=== PATIENT | male | born 1950 | race Caucasian/White ===

== ENCOUNTER 2022-12-09 09:14 | Outpatient (OUT) | payer MEDICARE, SELFPAY ==
--- NOTE | 2022-12-09 | PCN_ITS ---
CARDIAC STRESS TEST Requesting Physician:? Jeffrey Ingram M.D. ? Procedure Date:? 12/09/2022 PERFORMING PHYSICIAN:? Lindsey Hoff M.D. INDICATION:? Chest pain. STRESS TEST TYPE:? Lexiscan myocardial perfusion imaging. Resting heart rate:? 58 Maximum heart rate:? 78 Resting blood pressure:? 160/98 Max blood pressure:? 174/86 CONCLUSIONS: 1.? Resting EKG is abnormal.? Patient is noted to have sinus bradycardia with sinus arrhythmia with a first degree AV block.? There was poor R-wave progression indicative of a possible anterior infarct, age indeterminate. 2.? No definite EKG changes consistent with ischemia post Lexiscan infusion. 3.? Please refer to separately interpreted and reported myocardial perfusion imaging. 4.? Clinical correlation recommended. [facility]
--- NOTE | 2022-12-09 09:30 | NM_ITS ---
Patient: LIS WOMACK Exam Date: 12/09/2022 : 1950 Gender:M Ordering : DR MAXI WU M.D. Admission #: [id number] Family : DR ANA JIMÉNEZ M.D. Order #: [id number] CLICK HERE TO VIEW EXAM RADIOLOGY REPORT PROCEDURE: NM SARAH PERF SPECT REST STR COMPARISON: None. INDICATIONS: CHEST PAIN, CORONARY ARTERY DISEASE TECHNIQUE: Exam Description: Stress/Rest one day protocol gated SPECT Rest Imagin.7 mCi Tc-99m Cardiolite IV on 12/12/2022 Stress Imaging 25.4 mCi Tc-99m Cardiolite IV on 12/09/2022 Exercise Protocol: 0.4 mg Lexiscan given IV Heart Rate (bpm): Rest: 58 Max: 78 PMHR: 52 Blood Pressure: Rest: 160/98 Max: 174/86 Symptoms: Rest and peak stress ECG findings were normal and the exercise portion of the study was normal per attending physician Dr. Hoff . For more details please see separate cardiac stress test report. FINDINGS: QUALITY OF STUDY: Excellent. PERFUSION DEFECT: LOCATION: Mid-anteroseptal. Mid-inferior. Apical septal. Apical inferior. SIZE: Medium (3-4 segments). SEVERITY: Moderate. TYPE: Persistent. WALL MOTION: Normal. LV SIZE: Enlarged; EDV 143 mL. TID / TCD: None; 0.9 LVEF: Normal. Calculated EF 61%. SUMMARY: Myocardial perfusion imaging study has ABNORMAL findings. CONCLUSION: 1. No acute or reversible ischemia. 2. Moderate fixed perfusion defects involving the midbody through apex anterior septal wall and midbody through apex inferior wall. 3. Mild left ventriculomegaly, 143 mL. 4. Normal wall motion and ejection fraction. Dictated by: Rex Son M.D. on 12/12/2022 at 14:43 Approved by: Rex Son M.D. on 12/12/2022 at 14:53
[2022-12-09] MEDS: REGADENOSON 0.4 MG/5 ML SYRINGE IV (10:36)
== END 2022-12-09 09:15 | disposition home or self-care (01) ==
LOC: CARD 09:16
PROVIDERS: PCP Family Medicine; Visit Provider Internal Medicine Interventional Cardiology
DX: R07.9 Chest pain, unspecified (principal)
CPT/HCPCS: 78452; 93017; A9500; J2785

== ENCOUNTER 2022-12-12 09:47 | Outpatient (OUT) | payer MEDICARE, SELFPAY ==
--- NOTE | 2022-12-12 10:51 | CA_ITS ---
Patient: LIS WOMACK Exam Date: 12/12/2022 : 1950 Gender:M Ordering : DR Jeffrey Ingram M.D. Admission #: [id number] Family : Order #: [id number] CLICK HERE TO VIEW EXAM ECHOCARDIOGRAM REPORT PROCEDURE: CA ECHO DOPPLER COMPLETE INDICATIONS: CHRONIC SYSTOLIC HEART FAILURE COMPARISON: None. DESCRIPTION: COMPLETE ECHOCARDIOGRAM Real-time transthoracic echocardiography with 2D, M-mode, spectral and color flow Doppler performed. QUALITY: Technical quality was good. LEFT VENTRICLE: Normal chamber size. Borderline left ventricular hypertrophy. Global left ventricular systolic function is normal. LV EF: Estimated left ventricular ejection fraction is 55-60%. DIASTOLIC: Diastolic function is indeterminate. ATRIAL SEPTUM: LEFT ATRIUM: Mild dilatation. RIGHT ATRIUM: Mild dilatation. RIGHT VENTRICLE: Normal chamber size. Normal right ventricular systolic function. TRICUSPID VALVE: Normal mobility and thickness. No stenosis with mild regurgitation. Mild pulmonary hypertension. RVSP 35 mmHg MITRAL VALVE: Normal mobility and thickness. No evidence of mitral valve stenosis. There is no mitral annular calcification. Trivial mitral regurgitation. AORTIC VALVE: Normal trileaflet appearance. Normal leaflet mobility. No evidence of aortic valve stenosis. No aortic regurgitation. AORTIC ROOT: Normal diameter and appearance. PULMONIC VALVE: Normal thickness and mobility. No stenosis. Trivial regurgitation. PERICARDIUM: No evidence of pericardial effusion. IVC: Collapses with inspirations. Normal size. PLEURA: CONCLUSION: 1. Left ventricular systolic function is normal. LVEF is 55 to 60%. 2. Normal right ventricular size and systolic function. 3. Diastolic function is indeterminate. 4. Mild biatrial dilatation. 5. No significant valvular dysfunction. 6. Mildly elevated right-sided pressures. Adult Echocardiography Procedure Report Left Ventricle LVEDD (3.7 - 5.6 cm): 4.65 cm LVESD (2.2 - 4.0 cm): 3.23 cm LVIVS thickness (0.6 - 1.2 cm): 1.06 cm LVPW thickness (0.5 - 1.0 cm): 1.11 cm e': 0.11 m/s E - e': 7.66 LVOT Max Gradient: 3.27 mm[Hg] LVOT Area (cm2): 0.90 m/s Peak Velocity (LVOT): 0.90 m/s Mean Velocity (LVOT): 0.62 m/s LVOT Diameter 2.25 cm Left Ventricular Ejection Fraction: 55-60 % Left Atrium LA Volume Index (2D A2C): 45.87 ml/m2 Left Atrium Systolic Dimension: 4.62 cm Mitral Valve MV E to A Ratio: 0.93 Mitral Valve A-Wave Peak Velocity: 0.87 m/s Mitral Valve E-Wave Peak Velocity: 0.81 m/s Right Ventricle RV Internal Diastolic Dimension: 3.99 cm Aorta AO Root Diam: 3.29 cm Ascending Ao Diam: 3.23 cm Aortic Valve AoV Area (Peak Jose): 3.23 cm2, 3.23 cm2 AoV Area (VTI): 2.80 cm2, 2.80 cm2 Peak Velocity(Antegrade Flow): 1.11 m/s Peak Gradient(Antegrade Flow): 4.96 mm[Hg] Mean Velocity(Antegrade Flow): 0.83 m/s Mean Gradient(Antegrade Flow): 3.07 mm[Hg] Velocity Time Integral: 35.03 cm Tricuspid Valve Peak Velocity (Regurgitant Flow): 2.70 m/s, 2.29 m/s, 2.83 m/s Pulmonic Valve Mean Gradient: 3.44 mm[Hg] Mean Velocity: 0.87 m/s Peak Velocity: 1.28 m/s, 1.11 m/s Peak Gradient: 6.58 mm[Hg], 4.97 mm[Hg] Right Atrium Right Atrium Systolic Pressure: 59.67 ml, 59.67 ml Dictated by: Aiden Ramires M.D. on 12/12/2022 at 19:46 Approved by: Aiden Ramires M.D. on 12/12/2022 at 19:51
== END 2022-12-12 09:48 | disposition home or self-care (01) ==
LOC: NM 09:47
PROVIDERS: PCP Family Medicine; Visit Provider Internal Medicine Interventional Cardiology
DX: R07.9 Chest pain, unspecified (principal)
CPT/HCPCS: 93306

== ENCOUNTER 2024-10-28 09:51 | Outpatient (OUT) | payer MEDICARE, SELFPAY ==
--- OUTSIDE RECORDS SUMMARY | 2024-10-25 12:20 | XMS_ITS | Encounter Summary ---
Author Organization [facility] Address [address] [place] [address] Care Team Providers Care Ict Educator Name Role Phone Emily Kohli MD Unavailable Emily Kohli MD Primary Care Provider [phone] Reason for Referral * Medications - Authorized Specialty Diagnoses / Procedures Referred By Isrrael t Referred To Contact Diagnoses Chronic low back pain with bilateral sciatica, unspecified back pain laterality Emily Kohli MD [address] [place] [address] Phone: tel: fax: Referral ID Status Reason Start Date Expiration Date V isits Requested Visits Authorized [id number] Authorized 07/26/2024 10/25/2025 1 1 Reason for Visit * Reason Comments Back Pain Encounter Details Date Type Department Care Team (Latest Contact Info) Description 10/25/2024 12:20 PM EDT Office Visit [facility] [address] [place] [phone] Emily Kohli MD [address] [place], [place] [phone] Routine general medical examination at a health care facility (Primary Dx); Coronary artery disease involving upper skagit coronary artery of upper skagit heart without angina pectoris ; Essential hypertension ; Obstructive sleep apnea syndrome; Type 2 diabetes mellitus with other circulatory complications (HCC); 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); Morbid (severe) obesity due to excess calories (E66.01); Benign prostatic hyperplasia with lower urinary tract symptoms, symptom details unspecified; Chronic low back pain with bilateral sciatica, unspecified back pain laterality; BMI 50.0-59.9, adult ([facility]); Prostate cancer screening; Encounter for screening for malignant neoplasm of colon; Chronic diastolic (congestive) heart failure (HCC) Social History Tobacco Use Types Packs/Day Years Used Date Smoking Tobacco: Never Smokeless Tobacco: Never Alcohol Use Standard Drinks/Week Comments Never 0 (1 standard drink = 0.6 oz pure alcohol) Caffeine intake: none Ice Tea, pop occasionally PHQ-2 Answer Date Recorded Patient Health Questionnaire-2 Score 0 10/25/2024 Sex and Gender Information Value Date Recorded Sex Assigned at Not on file Legal Sex Male 7:25 PM EDT Gender Identity Not on file Sexual Orientation Not on file documented as of this encounter Last Filed Vital Signs Vital Sign Reading Time Taken Comments Blood Pressure 126/82 10/25/2024 12:30 PM EDT Pulse 63 10/25/2024 12:30 PM EDT Temperature - - Respiratory Rate 18 10/25/2024 12:30 PM EDT Oxygen Saturation 97% 10/25/2024 12:30 PM EDT Inhaled Oxygen Concentration - - Weight 144 kg (317 lb 3.2 oz) 10/25/2024 12:30 P M EDT Height 177.8 cm (5' 10 ) 10/25/2024 12:30 PM EDT Body Mass Index 45.51 10/25/2024 12:30 PM EDT documented in this encounter Functional Status * Over the past 2 weeks, how often have you been bothered by any of the following problems? Question Answer Date of Assessment Author Little interest or pleasure in doing things Not at all 10/25/2024 12:00 PM EDT Deisi Ramos MA Feeling down, depressed, or hopeless Not at all 10/25/2024 12:00 PM EDT Deisi Ramos MA Patient Health Questionnaire-2 Score 0 10/25/2024 12:00 PM EDT Sarbjit Ramos MA documented as of this encounter Progress Notes * Emily Kohli MD - 10/25/2024 12:20 PM EDTAssociated Problem(s): Coronary artery disease stable managed by cardiology * Emily Kohli MD - 10/25/2024 12:20 PM EDTAssociated Problem(s): Essential hypertension stable * Emily Kohli MD - 10/25/2024 12:20 PM EDTAssociated Problem(s): Obstructive sleep apnea syndrome Uses mask cpap * Emily Kohli MD - 10/25/2024 12:20 PM EDTAssociated Problem(s): Type 2 diabetes mellitus with other circulatory complications (HCC) Orders: Microalbumin / creatinine urine ratio; Future CBC and differential; Future Comprehensive metabolic panel; Future Lipid panel; Future managed by endo * Emily Kohli MD - 10/25/2024 12:20 PM EDTAssociated Problem(s): 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 Subjective Patient ID: Gunnar Zarate is a 74 y.o. male who presents for Back Pain. HPI History of Present Illness Over the past 2 weeks, how often have you been bothered by any of the following problems? Little interest or pleasure in doing things: Not at all Feeling down, depressed, or hopeless: Not at all Patient Health Questionnaire-2 Score: 0 Emerson Fall Risk History of Falling, Immediate or Within 3 Months: No Secondary Diagnosis: No Ambulatory Aid: Walks without aid/bedrest/nurse assist Intravenous Therapy/Heparin Lock: No Gait/Transferring: Normal/bedrest/immobile Mental Status: Oriented to own ability Emerson Fall Risk Score: 0 Health Risk Assessment Form Do you need help eating, bathing, using the toilet, dressing, or getting around your home?: No Can you prepare your own meals?: Yes Can you do your own housework without help?: Yes Can you shop for groceries or clothes without help?: Yes Do you exercise for about 20 minutes 3 or more days a week?: Yes How confident are you that you can control and manage most of your health problems?: Very confident Can you mange your money, credit cards and accounts, pay bills and taxes?: Yes Vision Screening: Yes, no gross abnormalities Hearing Screening: Yes, no gross abnormalities Cognitive Screening Self Assessment: No overt cognitive deficiency is apparent by direct observation Three Word Registration: Banana, Bee, Chair Clock Drawing: Normal Clock - 2 Three Word Recall: 2/3 words correct - 2 Total Score (0-5 Points): 4 Pain Assessment Pain Score: 10 - Worst possible pain The patient presents for evaluation of back pain, heartburn, sleep apnea, and health maintenance. He experienced severe lower back pain while gardening approximately 1.5 weeks ago, which has since improved. However, he continues to struggle with mobility after sitting for extended periods. He also reports limited neck mobility. He is seeking non-pharmacological relief for his symptoms but is open to muscle relaxants. He maintains an active lifestyle, including walking and yard work. He has been managing his condition through morning stretches and exercises, as advised by his chiropractor. [id number] Tylenol provides some relief. He has tried physical therapy, but it exacerbated his tailbone pain. He has a history of a fall about a year ago, which resulted in persistent tailbone pain. Despite undergoing x-rays and chiropractic treatment, no significant findings were reported. He occasionally experiences chest pain, which he attributes to heartburn. He is currently on medication for this condition and finds Maureen-Cedar [place] tablets beneficial. He had a spicy meal last night and experienced heartburn. He uses a CPAP machine for sleep apnea and reports no issues with it. His blood sugar levels are well-controlled, with a recent reading of 7.2. He has undergone cataractsurgery on his left eye and has been advised to have his right eye checked due to difficulties withnight driving. He has had three colonoscopies, the most recent one in 2014, all of which were normal. PAST SURGICAL HISTORY: Cataract surgery on the left eye Objective BP 126/82 (BP Location: Left arm, Patient Position: Sitting, BP Cuff Size: Large adult) Pulse 63 Resp 18 Ht 5' 10 Wt 317 lb 3.2 oz SpO2 97% BMI 45.51 kg/m² Physical Exam Constitutional: Appearance: He is normal weight. HENT: Head: Normocephalic and atraumatic. Nose: Nose normal. No congestion. Mouth/Throat: Mouth: Mucous membranes are moist. Eyes: Extraocular Movements: Extraocular movements intact. Pupils: Pupils are equal, round, and reactive to light. Cardiovascular: Rate and Rhythm: Normal rate and regular rhythm. Pulmonary: Effort: Pulmonary effort is normal. No respiratory distress. Breath sounds: Normal breath sounds. No wheezing. Musculoskeletal: General: No swelling or deformity. Cervical back: Normal range of motion and neck supple. Right lower leg: No edema. Left lower leg: No edema. Comments: Bilateral tenderness at SI joints. 5/5 leg strength Skin: General: Skin is warm and dry. Findings: No rash. Neurological: General: No focal deficit present. Mental Status: He is alert and oriented to person, place, and time. Cranial Nerves: No cranial nerve deficit. Gait: Gait normal. Psychiatric: Mood and Affect: Mood normal. Behavior: Behavior normal. Physical Exam Respiratory: Clear to auscultation, no wheezing, rales or rhonchi Cardiovascular: Regular rate and rhythm, no murmurs, rubs, or gallops Extremities: No swelling in the legs Other: Height is 59.5 inches Lab Results Component Value Date HGBA1C 7.7 09/17/2024 Visit Vitals BP 126/82 (BP Location: Left arm, Patient Position: Sitting, BP Cuff Size: Large adult) Pulse 63 Resp 18 Ht 5' 10 Wt 317 lb 3.2 oz SpO2 97% BMI 45.51 kg/m² Smoking Status Never BSA 2.67 m² Assessment & Plan Routine general medical examination at a health care facility As of your medicare wellness visit , the medical team reviewed your chart and chronic problems and treatment. Your information regarding healthy diet, activity, immunizations, depression screening, advance directives , activities of daily living medications, cognitive screening and risk factors fordisease were reviewed or addressed Coronary artery disease involving upper sk[place]it coronary artery of upper skagit heart without angina pectoris stable managed by cardiology Essential hypertension stable Obstructive sleep apnea syndrome Uses mask cpap Type 2 diabetes mellitus with other circulatory complications (HCC) Orders: Microalbumin / creatinine urine ratio; Future CBC and differential; Future Comprehensive metabolic panel; Future Lipid panel; Future managed by endo USP (current) use of insulin (Z79.4) Morbid (severe) obesity due to excess calories (E66.01) Benign prostatic hyperplasia with lower urinary tract symptoms, symptom details unspecified stable Chronic low back pain with bilateral sciatica, unspecified back pain laterality BMI 50.0-59.9, adult ([facility]) Prostate cancer screening Orders: PSA; Future Encounter for screening for malignant neoplasm of colon Chronic diastolic (congestive) heart failure (HCC) Stable managed by cardiology Assessment & Plan 1. Back pain. - The pain is localized to the sacroiliac joint rather than the tailbone. - A prescription for a muscle relaxant has been provided. He is advised to continue taking Tylenol as needed and to perform daily stretches. - Additional back exercises have been recommended for home practice during midday to strengthen theback. - If there is no improvement in his back pain, he should inform us so that further treatment options can be considered. 2. Heartburn. - He experiences occasional heartburn, sometimes related to spicy food intake. - He currently takes Maureen-[place] tablets, which provide relief. - He is advised to continue using these as needed. - No new medications or changes to the current treatment plan are necessary. 3. Sleep apnea. - He uses a CPAP machine and reports no issues with it. - No changes to the current treatment plan are necessary. - He is compliant with using his CPAP machine. - No additional interventions are required at this time. 4. Health maintenance. - He is due for blood work, including cholesterol levels. - A marker check for prostate cancer screening will be conducted today. - He is also due for a colonoscopy, as his last one was in 2014. - He has been informed about the importance of early detection and treatment of colon cancer. documented in this encounter Plan of Treatment Upcoming Encounters Date Type Department Care Team (Late st Contact Info) Description 11/11/2024 10:30 AM EDT Procedure Visit [facility] [address] [place] [phone] Rex Angel [facility] [address] [place], [place] [phone] 11/17/2024 10:30 AM EDT Office Visit [facility] [address] [place] [phone] 12/21/2024 11:10 AM EDT Office Visit [facility] [address] [place] [phone] Ron Washburn MD [address], [address] [place] [address] documented as of this encounter Procedures Procedure Name Priority Date/Time Associated Diagnosis Comments MICROALBUMIN / CREATININE URINE RATIO Routine 10/25/2024 1:14 PM EDT Type 2 diabetes mellitus with other circulatory complications (HCC) CBC (INCLUDES DIFF/PLT) Routine 10/25/2024 1:14 PM EDT Type 2 diabetes mellitus with other circulatory complications (HCC) PSA, TOTAL Routine 10/25/2024 1:14 PM EDT Prostate cancer screening LIPID PANEL Routine 10/25/2024 1:14 PM EDT Type 2 diabetes mellitus with other circulatory complications (HCC) COMPREHENSIVE METABOLIC PANEL Routine 10/25/2024 1:14 PM EDT Type 2 diabetes mellitus with other circulatory complications (HCC) documented in this encounter Results * (ABNORMAL) Lipid panel (10/25/2024 1:14 PM EDT) CHOLESTEROL, TOTAL 129 <200 mg/dL [facility] HDL CHOLESTEROL 40 > OR = 40 mg/dL [facility] TRIGLYCERIDES 190(H) <150 mg/dL [facility] LDL CHOLESTEROL 63 mg/dL (calc) [facility] Comment: Reference range: <100 Desirable range <100 mg/dL for primary prevention; <70 mg/dL for patients with CHD or diabetic patients with > or = 2 CHD risk factors. LDL-C is now calculated using the Michoacano-Shayy calculation, which is a validated novel method providing better accuracy than the Friedewald equation in the estimation of LDL-C. Michoacano SPAIN et al. JAZ. 2013;310(19): 2032-0567 (http://education.Fi.tt.[employer]/faq/LJK142) CHOL/HDLC RATIO 3.2 <5.0 (calc) [facility] NON HDL CHOLESTEROL 89 <130 mg/dL (calc) [facility] Comment: For patients with diabetes plus 1 major ASCVD risk factor, treating to a non-HDL-C goal of <100 mg/dL (LDL-C of <70 mg/dL) is considered a therapeutic option. Blood Venous blood specimen / Unknown 10/25/2024 1:14 PM EDT 10/25/2024 1:15 PM EDT Narrative Resulting Agency Comment Performing Organization Information Site ID: QPT Name: [facility] Address: [address] [place] [address], [address] [place] [id number] Director: Kory Grubbs MD Emily Kohli MD LAB BLOOD ORDERABLES Final Resul t [facility] * (ABNORMAL) Comprehensive metabolic panel (10/25/2024 1:14 PM EDT) Glucose 218(H) 65 - 99 mg/dL [facility] Comment: Fasting reference interval For someone without known diabetes, a glucose value >125 mg/dL indicates that they may have diabetes and this should be confirmed with a follow-up test. BUN 17 7 - 25 mg/dL [facility] Creatinine 0.95 0.70 - 1.28 mg/dL [facility] EGFR 85 > OR = 60 mL/min/1. 73m2 [facility] BUN/CREATININE RATIO SEE NOTE: 6 - 22 (calc) [facility] Comment: Not Reported: BUN and Creatinine are within reference range. Sodium 141 135 - 146 mmol/L [facility] Potassium, Bld 3.7 3.5 - 5.3 mmol/L [facility] Chloride 105 98 - 110 mmol/L [facility] Carbon Dioxide 28 20 - 32 mmol/L [facility] Calcium 8.4(L) 8.6 - 10.3 mg/dL [facility] PROTEIN, TOTAL 6.8 6.1 - 8.1 g/dL [facility] ALBUMIN 3.9 3.6 - 5.1 g/dL [facility] GLOBULIN 2.9 1.9 - 3.7 g/dL (calc) [facility] ALBUMIN/GLOBULIN RATIO 1.3 1.0 - 2.5 (calc) [facility] BILIRUBIN, TOTAL 0.4 0.2 - 1.2 mg/dL [facility] ALKALINE PHOSPHATASE 79 35 - 144 U/L [facility] AST 12 10 - 35 U/L [facility] ALT 9 9 - 46 U/L [facility] Blood Venous blood specimen / Unknown 10/25/2024 1:14 PM EDT 10/25/2024 1:15 PM EDT Narrative Resulting Agency Comment Performing Organization Information Site ID: QPT Name: [facility] Address: [address] , [address] [place] [address] Director: Kory Grubbs MD us Emily Kohli MD LAB BLOOD ORDERABLES Final Resul t [facility] * (ABNORMAL) CBC and differential (10/25/2024 1:14 PM EDT) Pathologist [facility] WHITE BLOOD CELL COUNT 8.6 3.8 - 10.8 Thousand/u L [facility] RED BLOOD CELL COUNT 4.76 4.20 - 5.80 Million/uL [facility] HEMOGLOBIN 13.0(L) 13.2 - 17.1 g/dL [facility] HEMATOCRIT 42.3 38.5 - 50.0 % [facility] MCV 88.9 80.0 - 100.0 fL [facility] MCH 27.3 27.0 - 33.0 pg [facility] MCHC 30.7(L) 32.0 - 36.0 g/dL [facility] Comment: For adults, a slight decrease in the calculated MCHC value (in the range of 30 to 32 g/dL) is most likely not clinically significant; however, it should be interpreted with caution in correlation with other red cell parameters and the patient's clinical condition. RDW 15.9(H) 11.0 - 15.0 % [facility] PLATELET COUNT 193 140 - 400 Thousand/u L [facility] MPV 10.2 7.5 - 12.5 fL [facility] ABSOLUTE NEUTROPHILS 6,011 1,500 - 7,800 cells/uL [facility] ABSOLUTE LYMPHOCYTES 1,548 850 - 3,900 cells/uL [facility] ABSOLUTE MONOCYTES 740 200 - 950 cells/uL [facility] ABSOLUTE EOSINOPHILS 249 15 - 500 cells/uL [facility] ABSOLUTE BASOPHILS 52 0 - 200 cells/uL [facility] NEUTROPHILS 69.9 % [facility] LYMPHOCYTES 18.0 % [facility] MONOCYTES 8.6 % [facility] EOSINOPHILS 2.9 % [facility] BASOPHILS 0.6 % [facility] Blood Venous blood specimen / Unknown 10/25/2024 1:14 PM EDT 10/25/2024 1:15 PM EDT Narrative Resulting Agency Comment Performing Organization Information Site ID: QPT Name: [facility] Address: [address] [place] [address], [address] [place] [phone] Director: Kory Grubbs MD Emily Kohli MD LAB BLOOD ORDERABLES Final Resul t Performing Organization Address [facility] de Phone Number [facility] * PSA (10/25/2024 1:14 PM EDT) PSA, TOTAL 1.90 < OR = 4.00 ng/mL [facility] Comment: The total PSA value from this assay system is standardized against the WHO standard. The test result will be approximately 20% lower when compared to the equimolar-standardized total PSA (Lynda Rougon). Comparison of serial PSA results should be interpreted with this fact in mind. This test was performed using the Siemens chemiluminescent method. Values obtained from different assay methods cannot be used interchangeably. PSA levels, regardless of value, should not be interpreted as absolute evidence of the presence or absence of disease. Blood Venous blood specimen / Unknown 10/25/2024 1:14 PM EDT 10/25/2024 1:15 PM EDT Narrative Resulting Agency Comment Performing Organization Information Site ID: QPT Name: [facility] Address: [address] [place] [address], [address] [place] [phone] Director: Kory Grubbs MD Emily Kohli MD LAB BLOOD ORDERABLES Final Resul t Performing Organization Address [facility] de Phone Number [facility] * Microalbumin / creatinine urine ratio (10/25/2024 1:14 PM EDT) CREATININE, RANDOM URINE 44 20 - 320 mg/dL [facility] ALBUMIN, URINE <0.2 See Note: mg/dL [facility] Comment: Reference Range: Reference Range Not established ALBUMIN/CREATININE RATIO, RANDOM URINE NOTE <30 mg/g creat [facility] Comment: NOTE: The urine albumin value is less than 0.2 mg/dL therefore we are unable to calculate excretion and/or creatinine ratio. The ADA defines abnormalities in albumin excretion as follows: Albuminuria Category Result (mg/g creatinine) Normal to Mildly increased <30 Moderately increased 30-299 Severely increased > OR = 300 The ADA recommends that at least two of three specimens collected within a 3-6 month period be abnormal before considering a patient to be within a diagnostic category. Urine Urine specimen obtained by clean catch procedure / Unknown 10/25/2024 1:14 PM EDT 10/25/2024 1:15 PM EDT Narrative Resulting Agency Comment Performing Organization Information Site ID: QPT Name: [facility] Address: [address] [place] [address], [address] [place] [phone] Director: Kory Grubbs MD us Emily Kohli MD LAB URINE ORDERABLES Final Resul t [facility] documented in this encounter Visit Diagnoses Diagnosis Routine general medical examination at a health care facility- Primary Coronary artery disease involving upper [place] coronary artery of upper sk[place] heart without angina pectoris Essential hypertension Unspecified essential hypertension Obstructive sleep apnea syndrome Obstructive sleep apnea (adult) (pediatric) Type 2 diabetes mellitus with other circulatory complications (HCC) USP (current) use of insulin (Z79.4) Morbid (severe) obesity due to excess calories (E66.01) Benign prostatic hyperplasia with lower urinary tract symptoms, symptom details unspecified Chronic low back pain with bilateral sciatica, unspecified back pain laterality BMI 50.0-59.9, adult ([facility]) Prostate cancer screening Special screening for malignant neoplasm of prostate Encounter for screening for malignant neoplasm of colon Chronic diastolic (congestive) heart failure (HCC) documented in this encounter Additional Health Concerns Assessment Noted Time PHQ-9 Depression Total Score: 3 07/15/19 24 11:00 AM EDT documented as of this encounter Care Teams Ict Educator Relationship Specialty Start Date End Date Emily Kohli MD [address] [place] [address] PCP - Gab RODRÍGUEZ 09/26/22 Emily Kohli MD [address] [place] [address] PCP - General Family Medicine 10/14/22 documented as of this encounter
--- OUTSIDE RECORDS SUMMARY | 2024-10-28 09:53 | XMS_ITS | Encounter Summary ---
Author Organization [facility] Address [address] [place] [address] Care Team Providers Care Speech Clinician Name Role Phone Emily Kohli MD Unavailable Emily Kohli MD Primary Care Provider [phone] Encounter Details Date Type Department Care Team (Late st Contact Info) Description 10/26/2024 Orders Only [facility] [address] [place] [phone] Emily Kohli MD [address], [place] [phone] Social History Tobacco Use Types Packs/Day Years [...] on file documented as of this encounter Plan of Treatment Upcoming Encounters Date Type Department Care Team (Late st Contact Info) Description 11/11/2024 10:30 AM EDT Procedure Visit [facility] [address] [place] [phone] Rex Angel DPM [address] [place], [place] [phone] 11/17/2024 10:30 AM EDT Office Visit [facility] [address] [place] [phone] 12/21/2024 11:10 AM EDT Office Visit [facility] [address] [place] [phone] Ron Washburn MD [address] [place] [address] documented as of this encounter Procedures Procedure Name Priority Date/Time Associated Diagnosis Comments DIABETIC RETINOPATHY SCREENING - OU - BOTH EYES Routine 05/31/2024 2:38 PM EST documented in this encounter Results * Diabetic Retinopathy Screening - OU - Both Eyes (05/31/2024 2:38 PM EST) Anatomical Region Laterality Modality Head Other Emily Kohli MD OPHTH PHOTOGRAPHY Final Result documented in this encounter Visit Diagnoses Not on filedocumented in this encounter Additional Health Concerns Assessment Noted Time PHQ-9 Depression Total Score: 3 07/15/19 24 11:00 AM EDT documented as of this encounter Care Teams Speech Clinician Relationship Specialty Start Date End Date Emily Kohli MD [address] [place] [address] PCP - Gab RODRÍGUEZ 09/26/22 Emily Kohli MD [address] [place] [address] PCP - General Family Medicine 10/14/22 documented as of this encounter
--- OUTSIDE RECORDS SUMMARY | 2024-10-28 09:53 | XMS_ITS | Encounter Summary ---
Author Organization [facility] Address [address] [place] [address] Care Team Providers Care Account Development Executive Name Role Phone Emily Kohli MD Unavailable Emily Kohli MD Primary Care Provider [phone] Encounter Details Date Type Department Care Team (Latest Contact Info) Description 10/25/2024 Travel Social History Tobacco Use Types Packs/Day Years [...] on file documented as of this encounter Functional Status * Over the [...] Ramos MA documented as of this encounter Plan of Treatment Upcoming Encounters Date Type Department Care Team (Late st Contact Info) Description 11/11/2024 10:30 AM EDT Procedure Visit [facility] [address] [place] [address] Rex Angel, DPM [address] [place] [address] 11/17/2024 10:30 AM EDT Office Visit [facility] [address] [place] [id number] 12/21/2024 11:10 AM EDT Office Visit [facility] [address] [place] [address] Ron Washburn MD [address] [place] [address] documented as of this encounter Visit Diagnoses Not on filedocumented in this encounter Additional Health Concerns Assessment Noted Time PHQ-9 Depression Total Score: 3 07/15/19 24 11:00 AM EDT documented as of this encounter Care Teams Account Development Executive Relationship Specialty Start Date End Date Emily Kohli MD [address] [place] [address] PCP - Gab RODRÍGUEZ 09/26/22 Emily Kohli MD [address] [place] [address] PCP - General Family Medicine 10/14/22 documented as of this encounter
--- OUTSIDE RECORDS SUMMARY | 2024-10-28 09:53 | XMS_ITS | Clinical Summary ---
Author Organization [facility] Address [address] [address] Care Team Providers Care University Controller Name Role Phone Emily Kohli MD Primary Care Provider [phone] Allergies Active Allergy Reactions Criticality Noted Date Comments Latex Other 04/15/2014 Shellfish Derived Other 04/15/2014 Medications aspirin 81 mg chewable tablet Chew 81 mg in the morning. Active carvedilol (Coreg) 12.5 mg tablet Take 25 mg by mouth with breakfast and with evening meal. 03/04/20 22 Active cholecalciferol , vitamin D3, 50 mcg (2,000 unit) capsule Take 2,000 Units by mouth in the morning. 04/20/20 18 Active fluticasone (Flonase) 50 mcg/actuation nasal spray 01/21/20 17 Active hydroCHLOROthia zide (HYDRODiuril) 25 mg tablet Take 25 mg by mouth in the morning. Active insulin lispro protamin-lispro (HumaLOG Mix 75-25) 100 unit/mL (75-25) injection Inject by sub-q route as directed for 29 days. Active lisinopril 40 mg tablet Take 40 mg by mouth in the morning. 02/12/20 Active metFORMIN (Glucophage) 1,000 mg tablet Take 1 tablet twice a day by oral route for 90 days. 10/17/19 19 Active simvastatin (Zocor) 40 mg tablet Take 40 mg by mouth at bedtime. 02/12/20 22 Active tamsulosin (Flomax) 0.4 mg 24 hr capsule 01/31/20 22 Active HumaLOG KwikPen Insulin 100 unit/mL injection pen Inject under the skin. Active omeprazole (PriLOSEC) [address] capsule Take 40 mg by mouth. 10/15/19 23 Active dapagliflozin propanediol (Farxiga) 10 mg Take by mouth. Active semaglutide (Ozempic) 0.25 mg or 0.5 mg(2 mg/1.5 mL) pen injector Inject 0.5 mg under the skin 1 (one) time per week. 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 Victoza. Metformin.//aspirin. Statin. Danny. 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 05/21/2023 Morbid (severe) obesity due to excess calories 0 05/21/2023 Asymmetrical sensorineural hearing loss 10/14/19 23 Coronary artery disease 10/13/2022 Overview (09/23/2023): Sees cardiology at [facility] Dependence on other enabling machines and device s 10/13/2022 Difficulty walking 10/13/2022 Lumbar and sacral osteoarthritis 10/13/2022 Other chronic pain 10/13/2022 Pain in right knee 10/13/2022 Unspecified hearing loss, unspecified ear 2022 Overview (09/23/2023): HEARING AID Benign prostatic hyperplasia with lower urinary tract symptoms 11/09/2019 Overview (09/23/2023): 11/09/19: Progressive lower urinary tract symptoms. Multifactorial. Plan to start with tamsulosin. If no improvement will add anticholinergic 12/08/19: 30% improvement with Flomax. Will increase to 0.8 mg nightly. 06/27/20: Did not take the higher dose. Having lightheadedness currently. Recommendation was him to stay on the 0.4 mg tamsulosin. Add oxybutynin extended release 10 mg 08/30/20: PVR 390. He will discontinue the oxybutynin. Discussed trying finasteride or proceeding with cysto. He wants to hold off for now but will call if he changes his mind. 01/02/21: Persistent elevated postvoid residual 239 cc. Discussed options. We could add finasteride but this will take 6-12 months to gradually shrink his prostate. Alternatively we can perform cysto to evaluate if he would be a candidate for bladder outlet reduction. I told him this would get him off of the tamsulosin. His frequency may persist as this is likely due to his overactive bladder however we need to maximize his opening of his outlet to allow him to empty completely prior to restarting any medication to relax the bladder further as this caused him to have markedly increased residual urines. 01/30/21: Cysto with BPH. Plan for TURP 02/25/23: luts - plan retrial tamsulosin and oxybutynin. Recheck pvr in a month Last Assessment & Plan: We will see him back in a few months or sooner if he changes his mind 11/09/19: Progressive lower urinary tract symptoms. Multifactorial. Plan to start with tamsulosin. If no improvement will add anticholinergic 12/08/19: 30% improvement with Flomax. Will increase to 0.8 mg nightly. 06/27/20: Did not take the higher dose. Having lightheadedness currently. Recommendation was him to stay on the 0.4 mg tamsulosin. Add oxybutynin extended release 10 mg 08/30/20: PVR 390. He will discontinue the oxybutynin. Discussed trying finasteride or proceeding with cysto. He wants to hold off for now but will call if he changes his mind. 01/02/21: Persistent elevated postvoid residual 239 cc. Discussed options. We could add finasteride but this will take 6-12 months to gradually shrink his prostate. Alternatively we can perform cysto to evaluate if he would be a candidate for bladder outlet reduction. I told him this would get him off of the tamsulosin. His frequency may persist as this is likely due to his overactive bladder however we need to maximize his opening of his outlet to allow him to empty completely prior to restarting any medication to relax the bladder further as this caused him to have markedly increased residual urines. 01/30/21: Cysto with BPH. Plan for TURP 02/25/23: luts - plan retrial tamsulosin and oxybutynin. Recheck pvr in a month Last Assessment & Plan: We will see him back in a few months or sooner if he changes his mind Hematuria, microscopic 11/09/2019 Overview (09/23/2023): 11/09/19: Microhematuria on one specimen at primary care. He was unable to void in clinic today. Plan recheck when returns and workup further if persistent 12/08/19: Unable to void again. I provided him with the order and cup, he will drop off at the lab soon. Denies gross hematuria 12/09/19: UA with 1 RBC Hypovitaminosis D 04/20/2018 Adequate nutrition 03/05/2018 Overview (09/23/2023): DIET : TEA, LOW CHOLESTEROL, 1800 ADA , WT LOSS Gastroesophageal reflux disease without esophagi tis 03/05/2018 Overview (09/23/2023): Ranitidine Rantidine Preventative health care 03/05/2018 Overview (09/23/2023): Last Assessment & Plan: DATE WHEN VACCINE ------- --FLU YRLY IN FALL --TETANUS Q 10 YRS --HZ ONCE AGE 60 --PREVNAR 13 ONCE AGE 65 --PPSSV 23 ONCE AGE 68 CA SCREENING --COLONOSCOPY AGE 50 - 75 --FIT AGE 50 - 75 --PSA AGE 50 - 70 -[place] AGE 50 - 70 --PAP AGE 21 - 65 --MAMMOGRAM AGE 45 TO 75 OSTEOPOROSIS --DEXA MENOPAUSAL OPTHO YEALRY DENTAL YEARLY TOBACCO USE YEARLY OBESITY BMI > 30 OVERWT BMI 25 -29 NORMAL BMI 18.5 -24.9 YEARLY YEARLY YEARLY Medicare Wellness YEARLY (67) DM -diabetic eye exam -diabetic foot exam YEARLY -diabetic shoes -diabetic classes -asa, arb/danny, statin Diastolic heart failure 09/27/2011 Essential hypertension 09/26/2011 Overview (09/23/2023): Lisinopril, HCTZ, Carvedilol, Lasix Stable tolerating medications without difficulty Hyperlipidemia 09/26/2011 Overview (09/23/2023): Simvastatin Obstructive sleep apnea syndrome 09/26/2011 Overview (09/23/2023): Good compliance. Using cpap Encounters Date Type Department Care Team Description 10/03/[address] [address] Jeffrey Ingram MD Edema, unspecified type 09/23/2024 11:00 AM EDT Office Visit [address] [address] Jeffrey Ingram MD Coronary artery disease involving [place] coronary artery of [place] heart without angina pectoris (Primary Dx); Chronic diastolic heart failure (CMS/HCC); LIANG (dyspnea on exertion) from Last 3 Months Social History Tobacco Use Types Packs/Day Years Used Date Smoking Tobacco: Never Passive Smoke Exposure: Never Smokeless Tobacco: Never Tobacco Cessation:Counseling Given: Not Answered Alcohol Use Standard Drinks/Week Comments Yes 0 (1 standard drink = 0.6 oz pur e alcohol) occasional [place] Safety & Environment Answer Date Rec orded Fear of Current or Ex-Partner Not on file Emotionally Abused Not on file 06/19/2023 Physically Abused Not on file 06/19/2023 Sexually Abused Not on file 06/19/2023 Physically or Sexually Abused Not on file Sex and Gender Information Value Date Recorded Sex Assigned at Not on file Legal Sex Male 10:28 PM EDT Gender Identity Not on file Sexual Orientation Not on file Last Filed Vital Signs Vital Sign Reading Time Taken Comments Blood Pressure 128/64 09/23/2024 11:03 AM EDT Pulse 60 09/23/2024 11:03 AM EDT Temperature - - Respiratory Rate - - Oxygen Saturation 96% 09/23/2024 11:03 AM EDT Inhaled Oxygen Concentration - - Weight 147 kg (325 lb) 09/23/2024 11:03 AM EDT Height 177.8 cm (5' 10 ) 09/23/2024 11:03 AM EDT Body Mass Index 46.63 09/23/2024 11:03 AM EDT Plan of Treatment Health Maintenance Due Date Last Done Comments CT Colonography 1952 FIT-DNA 1952 FIT 1952 FOBT 1950 Medicare Annual Wellness (AWV) 1950 Sigmoidoscopy 1952 Diabetes: Retinopathy Screening 1962 Depression Screening 1964 Adult Tetanus 1974 Zoster Vaccines (1 of 2) 2002 Fall Risk Screening 2017 Diabetes: Hemoglobin A1C 12/26/2022 09/25/2022 COVID-19 Vaccine ( season) 2024 02/09/2024, 02/07/2023, 02/14/2022, Additional history exists Colonoscopy 08/29/2024 08/29/2014 Colorectal Cancer Screening 08/29/2024 Influenza Vaccine (#1) 2024 , 02/07/2023, 01/16/2022, Additional history exists Diabetes: Urine Protein Screening 01/29/2025 01/30/2024, 10/14/2022 Pneumococcal Vaccine: 50+ Years Completed 05/19/2023, 03/05/2018, 05/29/2015 HIB Vaccines Aged Out No longer eligi ble based on patient's age to complete this topic HPV Vaccines Aged Out No longer eligi ble based on patient's age to complete this topic IPV Vaccines Aged Out No longer eligi ble based on patient's age to complete this topic Meningococcal B Vaccine Aged Out No l onger eligible based on patient's age to complete this topic Meningococcal Vaccine Aged Out No valentín errol eligible based on patient's age to complete this topic Rotavirus Vaccines Aged Out No longer eligible based on patient's age to complete this topic Insurance [facility] [address] [employer]ARE ADVANTAGE Care Teams University Controller Relationship Specialty Start Date End Date Emily Kohli MD [address] [place] [address] PCP - General Family Medicine 09/23/23
--- OUTSIDE RECORDS SUMMARY | 2024-10-28 09:53 | XMS_ITS | Encounter Summary ---
Author Organization [facility] Address [address] [place] [address] Care Team Providers Care Tassel Maker Name Role Phone Emily Kohli MD Unavailable Emily Kohli MD Primary Care Provider [phone] Encounter Details Date Type Department Care Team (Late st Contact Info) Description 10/25/2024 Bamboo flowsheet [facility] [address] [place] [address] Emily Kohli MD [address] [place] [address] Social History Tobacco Use Types Packs/Day Years [...] EDT Procedure Visit [facility] [address] [place] [id number] Rex Angel DPM [address] [place] [address] 11/17/2024 10:30 AM EDT Office Visit [facility] [address] [place] [phone] 12/21/2024 11:10 AM EDT Office Visit [facility] [address] [place] [id number] Ron Washburn MD [address] [place] [address] documented as of this encounter Visit Diagnoses Not on filedocumented in this encounter Additional Health Concerns Assessment Noted Time PHQ-9 Depression Total Score: 3 07/15/19 24 11:00 AM EDT documented as of this encounter Care Teams Tassel Maker Relationship Specialty Start Date End Date Emily Kohli MD [address] [place] [address] PCP - Gab RODRÍGUEZ 09/26/22 Emily Kohli MD [address] [place] [address] PCP - General Family Medicine 10/14/22 documented as of this encounter
--- OUTSIDE RECORDS SUMMARY | 2024-10-28 09:53 | XMS_ITS | Clinical Summary ---
Author Organization [facility] Address [address] [place] [address] Care Team Providers Care Asw/Asuw Tactical Air Controller Name Role Phone Emily Kohli MD Unavailable Emily Kohli MD Primary Care Provider [phone] Allergies Active Allergy Reactions Criticality Noted Date Comments Latex Unknown 04/15/2014 Shellfish-Derived Products Unknown,Hives 2020 Medications amLODIPine (Norvasc) 5 MG tablet Take 5 mg by mouth in the morning. Active aspirin 81 MG chewable tablet Chew 81 mg in the morning. Active bumetanide (Bumex) 1 MG tablet Take 1 mg by mouth in the morning. 10/11/19 23 Active calcium carbonate (Tums) 500 MG chewable tablet Chew 500 mg in the morning. Active Lantus SoloStar 100 UNIT/ML pen Inject 70 Units under the skin at bedtime Active HumaLOG KWIKPEN 100 UNIT/ML injection Inject 10-20 Units under the skin in the morning and 10-20 Units at noon and 10-20 Units in the evening. Inject with meals. Pt reports taking 10u with breakfast, 12-14u with lunch, and 12-14u at dinner. Prescribed by endo Ubhect 10-15-20 units to meal size plus ISS 1:10 AC (expect daily dose 80 unites). Active tamsulosin (Flomax) 0.4 MG 24 hr capsule Take 0.4 mg by mouth in the morning. 11/02/19 22 Active oxybutynin XL (Ditropan-XL) 10 MG 24 hr tablet Take 1 tablet by mouth in the morning. urology. 03/24/20 23 Active Continuous Blood Gluc Recording Artist (FreeStyle Naty 2 [place]) device 11/23/19 23 Active omeprazole (PriLOSEC) [address] capsuleIndicatio ns:Gastroesophag eal reflux disease without esophagitis TAKE 2 CAPSULES BY MOUTH EVERY MORNING BEFORE MEALS. DO NOT CRUSH OR CHEW 180 capsule 3 10/14/19 24 Active cholecalciferol (Vitamin D-3) 50 MCG (2000 UT) tablet Take 1 tablet by mouth Daily Active fluticasone (Flonase) 50 MCG/ACT nasal sprayIndications :Acute non-recurrent sinusitis, unspecified location Administer 1-2 sprays into each nostril Daily Shake gently. Before first use, prime pump. After use, clean tip and replace cap. 16 g 2 02/04/20 24 2024 Active simvastatin (Zocor) 40 MG tabletIndication s:Coronary artery disease involving osage coronary artery of osage heart without angina pectoris Take 1 tablet (40 mg) by mouth at bedtime 90 tablet 1 05/11/19 25 Active lisinopril 40 MG tabletIndication s:Essential hypertension Take 1 tablet (40 mg) by mouth Daily 90 tablet 3 06/01/19 25 2025 Active dapagliflozin (Farxiga) 10 MGIndications:Ty pe 2 diabetes mellitus with other circulatory complications (HCC) TAKE 1 TABLET BY MOUTH DAILY 30 tablet 5 08/28/19 25 Active metFORMIN (Glucophage) 1000 MG tabletIndication s:Type 2 diabetes mellitus with other circulatory complications (HCC) TAKE 1 TABLET BY MOUTH TWICE A DAY WITH A MEAL 180 tablet 1 10/05/19 25 Active carvedilol (Coreg) 25 MG tabletIndication s:Essential hypertension Take 1 tablet (25 mg) by mouth in the morning and 1 tablet (25 mg) in the evening. Take with meals. 180 tablet 3 10/05/19 25 2025 Active Continuous Glucose Sensor (FreeStyle Naty 2 Sensor) [facility] [place] 10/20/19 25 Active Ozempic, 0.25 or 0.5 MG/DOSE, 2 MG/3ML solution pen-injector 10/20/19 25 Active cyclobenzaprine (Flexeril) 10 MG tabletIndication s:Chronic low back pain with bilateral sciatica, unspecified back pain laterality Take 1 tablet (10 mg) by mouth in the morning and 1 tablet (10 mg) in the evening and 1 tablet (10 mg) before bedtime. Do all this for 10 days. 30 tablet 10/26/19 25 2024 Active carvedilol (Coreg) 25 MG tabletIndication s:Essential hypertension Take 1 tablet (25 mg) by mouth in the morning and 1 tablet (25 mg) in the evening. Take with meals. 180 tablet 3 10/01/19 24 2024 Discontinued(R eorder) metFORMIN (Glucophage) 1000 MG tabletIndication s:Type 2 diabetes mellitus with other circulatory complications (HCC) TAKE ONE TABLET BY MOUTH TWICE A DAY WITH MEALS 180 tablet 1 04/07/20 24 2024 Discontinued semaglutide (Ozempic, 0.25 or 0.5 MG/DOSE,) 2 MG/1.5ML solution pen-injectorIndi cations:Type 2 diabetes mellitus with other circulatory complications (HCC) Inject 0.5 mg under the skin 1 (one) time per week 1 each 12 09/18/19 25 2024 Discontinued(R eorder) semaglutide (Ozempic, 0.25 or 0.5 MG/DOSE,) 2 MG/1.5ML solution pen-injectorIndi cations:Type 2 diabetes mellitus with other circulatory complications (HCC) Inject 0.5 mg under the skin 1 (one) time per week 6 each 3 10/20/19 25 2024 Discontinued(M ed list cleanup) Active Problems Problem Noted Date Diagnosed Date Osteoarthritis 09/23/2023 Overview (10/16/2023): S/P KNEE SURGERY S/P KNEE SURGERY Allergic rhinitis 07/31/2023 Overview (07/31/2023): Ethan RUEDAN BMI 50.0-59.9, adult 07/31/2023 Assessment & Plan (10/25/2024 1:54 PM EDT): longterm (current) use of insulin (Z79.4) 05/21 Assessment & Plan (10/25/2024 1:54 PM EDT): Morbid (severe) obesity due to excess calories ( E66.01) 05/21/2023 Assessment & Plan (10/25/2024 1:54 PM EDT): Asymmetrical sensorineural hearing loss 10/14/19 23 Coronary artery disease 10/13/2022 Overview (10/14/2022): Sees cardiology at [facility] Assessment & Plan (10/25/2024 10:15 PM EDT): stable managed by cardiology Dependence on other enabling machines and device s 10/13/2022 Difficulty walking 10/13/2022 Essential hypertension 10/13/2022 Overview (10/14/2022): Stable tolerating medications without difficulty Assessment & Plan (10/25/2024 10:15 PM EDT): stable Hearing loss 10/13/2022 Lumbar and sacral osteoarthritis 10/13/2022 Obstructive sleep apnea syndrome 10/13/2022 Overview (07/15/2023): Good compliance. Using cpap Assessment & Plan (10/25/2024 1:54 PM EDT): Uses mask cpap Other chronic pain 10/13/2022 Pain in right knee 10/13/2022 Type 2 diabetes mellitus wit h other circulatory complications 10/13/2022 Overview (10/14/2022): Sees endocrine dr henriquez Assessment & Plan (10/25/2024 10:15 PM EDT): Orders: Microalbumin / creatinine urine ratio; Future CBC and differential; Future Comprehensive metabolic panel; Future Lipid panel; Future managed by endo Benign prostatic hyperplasia with lower urinary tract symptoms 11/09/2019 Overview (07/31/2023): 11/09/19: Progressive lower urinary tract symptoms. Multifactorial. [...] or sooner if he changes his mind Assessment & Plan (10/25/2024 10:15 PM EDT): stable Hematuria, microscopic 11/09/2019 Overview (10/16/2023): 11/09/19: Microhematuria on one specimen at primary care. He was unable to void in clinic today. Plan recheck when returns and workup further if persistent 12/08/19: Unable to void again. I provided him with the order and cup, he will drop off at the lab soon. Denies gross hematuria 12/09/19: UA with 1 RBC 11/09/19: Microhematuria on one specimen at primary care. He was unable to void in clinic today. Plan recheck when returns and workup further if persistent 12/08/19: Unable to void again. I provided him with the order and cup, he will drop off at the lab soon. Denies gross hematuria 12/09/19: UA with 1 RBC Hypovitaminosis D 04/20/2018 Hyperlipidemia 09/26/2011 Overview (10/16/2023): Simvastatin Simvastatin Resolved Problems Problem Noted Date Diagnosed Date Resolved Date Chronic mastoiditis of right side 10/13/2022 10/14/2022 Encounters Date Type Department Care Team Description 10/26/2024 Orders Only [facility] [address] [facility] [place] [address] Emily Kohli MD 10/25/2024 12:20 PM EDT Office Visit [facility] [address] [place] [address] Emily Kohli MD Routine general medical examination at a health care facility (Primary Dx); Coronary artery disease involving osage coronary artery of osage heart without angina pectoris ; Essential hypertension ; Obstructive sleep apnea syndrome; Type 2 diabetes mellitus with other circulatory complications (HCC); 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 (Z79.4); Morbid (severe) obesity due to excess calories (E66.01); Benign prostatic hyperplasia with lower urinary tract symptoms, symptom details unspecified; Chronic low back pain with bilateral sciatica, unspecified back pain laterality; BMI 50.0-59.9, adult ([facility]); Prostate cancer screening; Encounter for screening for malignant neoplasm of colon; Chronic diastolic (congestive) heart failure (HCC) 10/25/2024 Bamboo flowsheet [facility] [address] [place] [address] Emily Kohli MD 10/25/2024 Travel 10/19/2024 Telephone [facility] [address] [place] [address] Ron Washburn MD Med Refill 10/13/2024 9:15 AM EDT Clinical Support [facility] [address] [place] [address] Miriam Ardon, CCC-A Asymmetrical sensorineural hearing loss (Primary Dx) 10/13/2024 Bamboo flowsheet [facility] [address] [place] [address] Miriam Ardon CCC-A 10/06/2024 1:00 PM EDT Office Visit [facility] [address] [place] [address] Sensorineural hearing loss (SNHL) of both ears (Primary Dx) 10/04/2024 Refill [facility] [address] [place] [address] Emily Kohli MD Essential hypertension 10/04/2024 Telephone [facility] [address] [place] [address] Francheska Shaikh MA 10/04/20[address] [facility] [address] [place] [address] Francheska Shaikh MA 10/03/2024 Refill [facility] [address] [place] [address] Ron Washburn MD Type 2 diabetes mellitus with other circulatory complications (HCC) 09/30/2024 Telephone [facility] [address] [place] [address] Francheska Shaikh MA 09/23/2024 Telephone [facility] [address] [place] [address] Francheska Shaikh MA 09/17/2024 11:10 AM EDT Office Visit [facility] [address] [place] [address] Ron Washburn MD Type 2 diabetes mellitus with other circulatory complications (HCC) (Primary Dx); Primary hypertension ; Vitamin D deficiency; Insulin long-term use (HCC); Encounter for dietary consultation; Class 3 severe obesity due to excess calories with serious comorbidity and body mass index (BMI) of 45.0 to 49.9 in adult ([facility]-H[facility]) 09/17/2024 Bamboo flowsheet [facility] [address] [place] [address] Ron Washburn MD 08/31/2024 Telephone [facility] [address] [place] [address] Miriam Ardon CCC-A Not hearing well, problem w aid 08/27/2024 Refill [facility] [address] [place] [address] Ron Washburn MD Type 2 diabetes mellitus with other circulatory complications (HCC) 08/09/2024 10:45 AM EDT Office Visit [facility] [address] [place] [address] Rex Angel DPM Paronychia of great toe of right foot (Primary Dx); Onychocryptosis; Dystrophic nail; Pain of right great toe 08/09/2024 Bamboo flowsheet [facility] [address] [place] [address] Rex Angel DPM 08/09/2024 Travel 08/05/2024 Travel from Last 3 Months Immunizations Immunization Administration Dates Next Due Influenza, High Dose Seasona l, Preservative Free 02/04/2024,02/20/2019 Influenza, High-dose Seasona l, Quadrivalent, Preservative Free 02/07/2023,01/16/2022,02/19/2020 Influenza, Seasonal, Quadriv alent, Adjuvanted 02/09/2021 Influenza, injectable, quadr ivalent, preservative free 03/05/2018,04/10/2017 Influenza, seasonal, intrade rmal, preservative free 01/26/2015 Pneumococcal Conjugate PCV 13 03/05/2018 Pneumococcal Conjugate PCV 20 05/19/2023 Pneumococcal Polysaccharide PPSV23 05/29/2015 Family History Medical History Relation Name Comments Diabetes Father Heart disease Father Hypertension Father Dementia Mother Hypertension Mother Relation Name Status Comments Brother x 4, 1 Father Mother Sister x 4 Social History Tobacco Use Types Packs/Day Years Used Date Smoking Tobacco: Never Smokeless Tobacco: Never Tobacco Cessation:Counseling Given: Not Answered Alcohol Use Standard Drinks/Week Comments Never 0 [...] Pulse 63 10/25/2024 12:30 PM EDT Temperature 36.6 C (97.9 F) 04/24/2024 10:43 AM EST Respiratory Rate 18 10/25/2024 12:30 PM EDT Oxygen Saturation 97% 10/25/2024 12:30 PM EDT Inhaled Oxygen Concentration - - Weight 144 kg (317 lb 3.2 oz) 10/25/2024 12:30 P M EDT Height 177.8 cm (5' 10 ) 10/25/2024 12:30 PM EDT Body Mass Index 45.51 10/25/2024 12:30 PM EDT Plan of Treatment Upcoming Encounters Date Type Department Care Team (Late st Contact Info) Description 11/11/2024 10:30 AM EDT Procedure Visit [facility] [address] [place] [address] Rex Angel DPM [address] [place] [address] 11/17/2024 10:30 AM EDT Office Visit [facility] [address] [place] [address] 12/21/2024 11:10 AM EDT Office Visit [facility] [address] [place] [address] Ron Washburn MD [address] [place] [address] Health Maintenance Due Date Last Done Comments CT Colonography 1952 FIT-DNA 1952 FIT 1952 FOBT 1952 Sigmoidoscopy 1952 Colonoscopy 08/29/2024 08/29/2014 Colorectal Cancer Screening 08/29/2024 Diabetes: Hemoglobin A1C 12/18/2024 025, 05/21/2024, 01/16/2024, Additional history exists Influenza Vaccine (#1) 2024 , 02/07/2023, 01/16/2022, Additional history exists Diabetes: Retinopathy Screening 05/31/2025 05/31/2024, 04/09/2023, 04/09/2023, Additional history exists Diabetes: Urine Protein Screening 10/25/2025 10/25/2024, 01/30/2024, 04/15/2023, Additional history exists Pneumococcal Vaccine: 65+ Years Completed 05/19/2023, 03/05/2018, 05/29/2015 Procedures Procedure Name Priority Date/Time Associated Diagnosis Comments LIPID PANEL Routine 10/25/2024 1:14 PM EDT Type 2 diabetes mellitus with other circulatory complications (HCC) COMPREHENSIVE METABOLIC PANEL Routine 10/25/2024 1:14 PM EDT Type 2 diabetes mellitus with other circulatory complications (HCC) CBC (INCLUDES DIFF/PLT) Routine 10/25/2024 1:14 PM EDT Type 2 diabetes mellitus with other circulatory complications (HCC) PSA, TOTAL Routine 10/25/2024 1:14 PM EDT Prostate cancer screening MICROALBUMIN / CREATININE URINE RATIO Routine 10/25/2024 1:14 PM EDT Type 2 diabetes mellitus with other circulatory complications (HCC) AUDITORY FUNCTION TESTS Routine 10/13/2024 10:12 AM EDT POCT GLYCOSYLATED HEMOGLOBIN (HGB A1C) Routine 09/17/2024 11:18 AM EDT Type 2 diabetes mellitus with other circulatory complications (HCC) POCT GLUCOSE Routine 09/17/2024 11:18 AM EDT Type 2 diabetes mellitus with other circulatory complications (HCC) DIABETIC RETINOPATHY SCREENING - OU - BOTH EYES Routine 05/31/2024 2:38 PM EST COLONOSCOPY Routine 08/29/2014 12:00 PM EDT from Last 3 Months or Most Recently Relevant to Health Maintenance Results * Microalbumin / creatinine urine ratio (10/25/2024 [...] Performing Organization Information Site ID: QPT Name: [facility] Address: [address] [place] [address] Director: Kory Grubbs MD us Emily Kohli MD LAB URINE ORDERABLES Final Resul t [facility] * (ABNORMAL) CBC and differential (10/25/2024 1:14 PM EDT) WHITE BLOOD CELL COUNT 8.6 3.8 - [...] Performing Organization Information Site ID: QPT Name: [facility] Address: [facility], [address] [place] [address] Director: Kory Grubbs MD Emily Kohli MD LAB BLOOD ORDERABLES Final Resul t Performing Organization Address City/[facility]/ZIP Co de Phone Number [facility] * PSA (10/25/2024 1:14 PM EDT) PSA, TOTAL 1.90 < OR = 4.00 ng/mL [facility] Comment: The total PSA value from this assay system is standardized against the WHO standard. The test result will be approximately 20% lower when compared to the equimolar-standardized total PSA (Lynda Miley). Comparison of serial PSA results should be [...] Performing Organization Information Site ID: QPT Name: [facility] Address: [address] [place] [address], [address] [place] [phone] Director: Kory Grubbs MD Emily Kohli MD LAB BLOOD ORDERABLES Final Resul t Performing Organization Address [facility] de Phone Number [facility] * (ABNORMAL) Lipid panel (10/25/2024 1:14 PM [...] factors. LDL-C is now calculated using the Domenica calculation, which is a validated novel method providing better accuracy than the Friedewald equation in the estimation of LDL-C. [place]ano SPAIN et al. JAZ. 2013;310(19): 2471-9959 (http://education.[employer]faq/HPL573) CHOL/HDLC RATIO 3.2 <5.0 (calc) [facility] NON [...] Performing Organization Information Site ID: QPT Name: [facility] Address: [address] [place] [address], [address] [place] [phone] Director: Kory Grubbs MD Emily Kohli MD [...] Performing Organization Information Site ID: QPT Name: [facility] Address: [address] [place] [address], [address] [place] [phone] Director: Kory Grubbs MD Emily Kohli MD LAB BLOOD ORDERABLES Final Resul t [facility] * Auditory function tests (10/13/2024 10:12 AM EDT) Narrative Miriam Ardon, ABBY-A - 10/13/2024 10:12 AM EDT Right Ear: Severe to profound sensorineural hearing loss Left Ear: Mild sloping to severe sensorineural hearing loss Miriam Ardon [facility] ORDERA BLES Final Result * POCT glycosylated hemoglobin (Hb A1C) docked device (09/17/2024 11:18 AM EDT) Hemoglobin A1C 7.7 Blood Venous blood specimen / Unknown 09/17/2024 11:18 AM EDT Result [facility] Ron Washburn MD POINT OF CARE TEST ENTER/EDIT ORDERABLES Final Result * POCT glucose manually resulted (09/17/2024 11:18 AM EDT) Glucose Blood, POC 152 mg/dL Blood Capillary blood specimen / Unknown 09/17/2024 11:18 AM EDT us Ron Washburn MD POINT OF CARE TEST ENTER/EDIT ORDERABLES Final Result * Diabetic Retinopathy Screening - OU - Both Eyes (05/31/2024 2:38 PM EST) Anatomical Region Laterality Modality Head Other us Emily Kohli MD OPHTH PHOTOGRAPHY Final Result * Colonoscopy (08/29/2014 12:00 PM EDT) Anatomical Region Laterality Modality Endoscopy 08/29/2014 12:0 0 PM EDT Narrative 08/29/2014 12:00 PM EDT PERFORMED AT [facility] LOCATION:[id number] internal hemorrhoids Procedure Note CONVERSION, GENERIC - 09/12/2022 PERFORMED AT [facility] LOCATION:[id number] internal hemorrhoids us Alexia Stark SALVAGE ENGINEER ENDOSCOPY PROCEDURE ORD ERABLES Final Result from Last 3 Months or Most Recently Relevant to Health Maintenance Insurance [employer] Care Teams Asw/Asuw Tactical Air Controller Relationship Specialty Start Date End Date Emily Kohli MD [address] [place] [address] PCP - Gab RODRÍGUEZ 09/26/22 Emily Kohli MD [address] [place] [address] PCP - General Family Medicine 10/14/22
--- OUTSIDE RECORDS SUMMARY | 2024-10-28 09:54 | XMS_ITS | Encounter Summary ---
Author Organization [employer] [facility] Address [id number] [address] [place] [address] Care Team Providers Care Collections Agent Name Role Phone Emily Kohli MD Primary Care Provider [phone] Encounter Details Date Type Department Care Team (Late st Contact Info) Description 08/02/2020 Telephone [facility] [address] [place] [address] [place] [address] [phone] Susana Del Cid PA [facility] [place] [address] Social History Tobacco Use Types Packs/Day Years Used Date Smoking Tobacco: Never Smokeless Tobacco: Never Alcohol Use Standard Drinks/Week Comments No 0 (1 standard drink = 0.6 oz pur e alcohol) PHQ-2 Answer Date Recorded Total Score 0 2017 Childcare Answer Date Recorded Childcare Unknown 09/29/2018 Employment Answer Date Recorded Employment Unknown 09/29/2018 Purpose - Life Answer Date Recorded Purpose and direction in life Unknown Sex and Gender Information Value Date Recorded Sex Assigned at Not on file Legal Sex Male 11:36 AM EDT Gender Identity Not on file Sexual Orientation Not on file Occupation Industry Job Start Date Job End Date [employer] Not on file Not on file Not on file documented as of this encounter Miscellaneous Notes * Telephone Encounter - GRACIELA Raymond - 08/02/2020 5:14 PM EDT He was a no show for his follow-up today. Please call to reschedule * Telephone Encounter - Candie Ghotra - 08/02/2020 5:14 PM EDT LMOM 08/08/20 * Telephone Encounter - Candie Ghotra - 08/02/2020 5:14 PM EDT resched for 08/30/20 documented in this encounter Plan of Treatment Not on file documented as of this encounter Visit Diagnoses Not on filedocumented in this encounter Additional Health Concerns Assessment Noted Time PHQ-9 Depression Total Score: 0 10/22/19 18 3:00 PM EDT documented as of this encounter Care Teams Collections Agent Relationship Specialty Start Date End Date Emily Kohli MD PCP - General Family Medicine 11/29/22 documented as of this encounter
--- OUTSIDE RECORDS SUMMARY | 2024-10-28 09:54 | XMS_ITS | Encounter Summary ---
Author Organization [employer] Address [id number] [address] [place] [address] Care Team Providers Care Steeping Press Tender Name Role Phone Emily Kohli MD Primary Care Provider [phone] Reason for Visit * Reason Comments Med Refill Encounter Details Date Type Department Care Team (Late st Contact Info) Description 11/01/2022 Refill [facility] [address] [place] [phone] Esequiel Garibay MD [address] [place] [id number] Social History Tobacco Use Types Packs/Day Years [...] encounter Miscellaneous Notes * Telephone Encounter - Elodia Early APRN-BART - 11/01/2022 6:25 AM EDT Pt has not been seen since 2020 documented in this encounter Plan of Treatment Not on file documented as of this encounter Visit Diagnoses Not on filedocumented in this encounter Additional Health Concerns Assessment Noted Time PHQ-9 Depression Total Score: 0 10/22/19 18 3:00 PM EDT documented as of this encounter Care Teams Steeping Press Tender Relationship Specialty Start Date End Date Emily Kohli MD PCP - General Family Medicine 11/29/22 documented as of this encounter
--- OUTSIDE RECORDS SUMMARY | 2024-10-28 09:54 | XMS_ITS | Encounter Summary ---
Author Organization [employer] Address [id number] [address] [place] [address] Care Team Providers Care Rn Picu Name Role Phone Emily Kohli MD Primary Care Provider [phone] Reason for Visit * Reason Comments Med Refill Encounter Details Date Type Department Care Team (Late st Contact Info) Description 10/29/2021 Refill [facility] [address] [place] [phone] Esequiel Garibay MD [address] [place] [phone] Social History Tobacco Use Types Packs/Day Years [...] as of this encounter Plan of Treatment Not on file documented as of this encounter Visit Diagnoses Not on filedocumented in this encounter Additional Health Concerns Assessment Noted Time PHQ-9 Depression Total Score: 0 10/22/19 18 3:00 PM EDT documented as of this encounter Care Teams Rn Picu Relationship Specialty Start Date End Date Emily Kohli MD PCP - General Family Medicine 11/29/22 documented as of this encounter
--- OUTSIDE RECORDS SUMMARY | 2024-10-28 09:54 | XMS_ITS | Clinical Summary ---
Author Organization [facility] Address [address] [place] [address] Phone Care Team Providers Care Training Technician Name Role Phone Emily Kohli MD Primary Care Provider [phone] Social History Tobacco Use Types Packs/Day Years Used Date Smoking Tobacco: Never Assessed Sex and Gender Information Value Date Recorded Sex Assigned at Not on file Legal Sex Male 8:54 AM EST Gender Identity Not on file Sexual Orientation Not on file Last Filed Vital Signs Vital Sign Reading Time Taken Comments Blood Pressure - - Pulse - - Temperature 36.4 C (97.5 F) 09/05/2021 12:20 PM EDT Respiratory Rate - - Oxygen Saturation - - Inhaled Oxygen Concentration - - Weight 150 kg (330 lb 8 oz) 05/01/2022 3:[address] Height 175.3 cm (5' 9 ) 05/01/2022 3:24 PM EST Body Mass Index 48.81 05/01/2022 3:24 PM EST Plan of Treatment Health Maintenance Due Date Last Done Comments CT Colonography 1952 Colonoscopy 1952 Colorectal Cancer Screening 1952 FIT-DNA (Cologuard) 1952 FIT 1952 Lipid Panel 1952 Sigmoidoscopy 1952 Yearly Adult Physical 1952 Hepatitis C Screening 1970 DTaP/Tdap/Td Vaccines (1 - Tdap) 1974 Pneumococcal Vaccine (1 of 1 - PCV) 2002 Zoster Vaccines (1 of 2) 2002 RSV High Risk: (Elderly (60+ ) or Population) (1 - Risk 60-74 years 1-dose series) 2012 COVID-19 Vaccine (1 - 2023-2 5 season) 2023 Influenza Vaccine (#1) 2024 HIB Vaccines Aged Out No longer eligi ble based on patient's age to complete this topic HPV Vaccines (No Doses Required) Completed Hepatitis A Vaccines Aged Out No long er eligible based on patient's age to complete this topic Hepatitis B Vaccines Aged Out No long er eligible based on patient's age to complete this topic IPV Vaccines Aged Out No longer eligi ble based on patient's age to complete this topic Meningococcal Vaccine Aged Out No valentín errol eligible based on patient's age to complete this topic Rotavirus Vaccines Aged Out No longer eligible based on patient's age to complete this topic Medical Devices Implanted Type Area Enrollment Management Vice President Device Identifier Shelf Expiration Date Model / Serial / Lot Implant, Propel Contour Sinus Case [id number] Implanted:Qty: 1 on 02/08/2022 by Juventino Marin MD ENT Implant Nose INTERSECT ENT 12/28/2022 [id number] / / [id number] Description:Converted from [facility] Acute. Please see archived information for full log information. Insurance TRADITIONAL TRADITIONAL Care Teams Training Technician Relationship Specialty Start Date End Date Emily Kohli MD [address] [place], [place] [id number] PCP - General 09/05/21
--- OUTSIDE RECORDS SUMMARY | 2024-10-28 09:54 | XMS_ITS | Encounter Summary ---
Author Organization [employer] Address [id number] [address] [place] [address] Care Team Providers Care Academic Interventionist Name Role Phone Emily Kohli MD Primary Care Provider [phone] Reason for Visit * Reason Onset Date Comments Med Refill 07/07/2017 Encounter Details Date Type Department Care Team (Late st Contact Info) Description 07/07/2017 Refill [facility] [address] [facility] [place] [address] Mulu Garner MA Social History Tobacco Use Types Packs/Day Years Used Date Smoking Tobacco: Never Smokeless Tobacco: Never Alcohol Use Standard Drinks/Week Comments No 0 (1 standard drink = 0.6 oz pur e alcohol) Sex and Gender Information Value Date Recorded Sex Assigned at Not on file Legal Sex Male 11:36 AM EDT Gender Identity Not on file Sexual Orientation Not on file Occupation Industry Job Start Date Job End Date [employer] Not on file Not on file Not on file documented as of this encounter Miscellaneous Notes * Telephone Encounter - ANTHONY Cardenas - 07/23/2017 8:24 AM EDT Not my patient documented in this encounter Plan of Treatment Not on file documented as of this encounter Visit Diagnoses Not on filedocumented in this encounter Care Teams Academic Interventionist Relationship Specialty Start Date End Date Emily Kohli MD PCP - General Family Medicine 11/29/22 documented as of this encounter
--- OUTSIDE RECORDS SUMMARY | 2024-10-28 09:55 | XMS_ITS | Encounter Summary ---
Author Organization [employer] tem Address [id number] [address] [place] [address] Care Team Providers Care Stogy Roller Name Role Phone Emily Kohli MD Primary Care Provider [phone] Reason for Visit * Reason Comments Med Refill Encounter Details Date Type Department Care Team (Late st Contact Info) Description 10/28/2018 Refill [facility] [address] [facility] [address] Lianne Scott DO [address] [facility] [phone] Social History Tobacco Use Types Packs/Day Years Used Date Smoking Tobacco: Never Smokeless Tobacco: Never Alcohol Use Standard Drinks/Week Comments No 0 (1 standard drink = 0.6 oz pur e alcohol) PHQ-2 Answer Date Recorded Total Score 0 2017 Childcare Answer Date Recorded Childcare Unknown 09/29/2018 Employment Answer Date Recorded Employment Unknown 09/29/2018 Sex and Gender Information Value Date Recorded [...] documented as of this encounter Care Teams Stogy Roller Relationship Specialty Start Date End Date Emily Kohli MD PCP - General Family Medicine 11/29/22 documented as of this encounter
--- OUTSIDE RECORDS SUMMARY | 2024-10-28 09:55 | XMS_ITS | Encounter Summary ---
Author Organization [employer] Address [id number] [address] [place] [address] Care Team Providers Care Pool Installer Name Role Phone Emily Kohli MD Primary Care Provider [phone] Reason for Visit * Reason Comments Med Refill Encounter Details Date Type Department Care Team (Late st Contact Info) Description 08/17/2018 Refill [facility] [address] [facility] [place] [address] Lianne Scott DO [address] [facility] [place] [address] [phone] Type 2 diabetes mellitus without complication (CMS-HCC) Social History Tobacco Use Types Packs/Day Years Used Date Smoking Tobacco: Never Smokeless Tobacco: Never Alcohol Use Standard Drinks/Week Comments No 0 (1 standard drink = 0.6 oz pur e alcohol) PHQ-2 Answer Date Recorded Total Score 0 2017 Childcare Answer Date Recorded Childcare Unknown 07/22/2018 Employment Answer Date Recorded Employment Unknown 07/22/2018 Sex and Gender Information Value Date Recorded [...] documented as of this encounter Visit Diagnoses Diagnosis Type 2 diabetes mellitus without complication (CMS-HCC) documented in this encounter Additional Health Concerns Assessment Noted Time PHQ-9 Depression Total Score: 0 10/22/19 18 3:00 PM EDT documented as of this encounter Care Teams Pool Installer Relationship Specialty Start Date End Date Emily Kohli MD PCP - General Family Medicine 11/29/22 documented as of this encounter
--- OUTSIDE RECORDS SUMMARY | 2024-10-28 09:55 | XMS_ITS | Encounter Summary ---
Author Organization [employer] Address [id number] [address] [place] [address] Care Team Providers Care Corporate Affairs Manager Name Role Phone Emily Kohli MD Primary Care Provider [phone] Reason for Visit * Reason Comments Med Refill Encounter Details Date Type Department Care Team (Late st Contact Info) Description 04/19/2018 Refill [facility] [address] [facility] [place] [phone] Lianne Scott DO [address] [facility] [place] [address] Social History Tobacco Use Types Packs/Day Years Used Date Smoking Tobacco: Never Smokeless Tobacco: Never Alcohol Use Standard Drinks/Week Comments No 0 (1 standard drink = 0.6 oz pur e alcohol) PHQ-2 Answer Date Recorded Total Score 0 2017 Sex and Gender Information Value Date Recorded [...] documented as of this encounter Care Teams Corporate Affairs Manager Relationship Specialty Start Date End Date Emily Kohli MD PCP - General Family Medicine 11/29/22 documented as of this encounter
--- OUTSIDE RECORDS SUMMARY | 2024-10-28 09:55 | XMS_ITS | Encounter Summary ---
Author Organization [employer] tem Address [id number] [address] [place] [address] Care Team Providers Care Fbi Investigator Name Role Phone Emily Kohli MD Primary Care Provider [phone] Reason for Visit * Reason Comments Med Refill Encounter Details Date Type Department Care Team (Late st Contact Info) Description 02/10/2024 Refill [facility] [address] [place] [phone] Elodia Early, [employer] REPAIRER HELPER [address] [place] [id number] Social History Tobacco Use Types Packs/Day Years Used Date Smoking Tobacco: Never Smokeless Tobacco: Never Alcohol Use Standard Drinks/Week Comments No 0 (1 standard drink = 0.6 oz pur e alcohol) PHQ-2 Answer Date Recorded Total Score 0 07/18/2023 Childcare Answer Date Recorded Childcare Unknown 09/29/2018 Employment Answer Date Recorded Employment Unknown 09/29/2018 Hunger Screening Answer Date Recorded Within the past 12 months we worried whether our food would run out before we got money to buy more. Never True 07/18/2023 Within the past 12 months th e food we bought just didn't last and we didn't have money to get more. Never True 07/18/2023 Purpose - Life Answer Date Recorded Purpose [...] Noted Time PHQ-9 Depression Total Score: 0 07/18/19 24 2:33 PM EDT documented as of this encounter Care Teams Fbi Investigator Relationship Specialty Start Date End Date Emily Kohli MD PCP - General Family Medicine 11/29/22 documented as of this encounter
--- OUTSIDE RECORDS SUMMARY | 2024-10-28 09:55 | XMS_ITS | Encounter Summary ---
Author Organization [facility] Address [address] [place] [address] Care Team Providers Care Bobbin Stripper Name Role Phone Emily Kohli MD Unavailable Alexia Stark FLIGHT DATA TECHNICIAN Unavailable [phone] Emily Kohli MD Unavailable Emily Kohli MD Primary Care Provider [phone] Encounter Details Date Type Department Care Team (Late st Contact Info) Description 10/03/2021 Abstract [facility] [address] [place] [address] Miriam Ardon, [facility] [address] [place] [address] Social History Tobacco Use Types Packs/Day Years [...] Procedure Visit [facility] [address] [place] [phone] Rex Angel DPM [address] [place] [place], [place] [id number] 11/17/2024 10:30 AM EDT Office Visit [facility] [address] [place] [id number] 12/21/2024 11:10 AM EDT Office Visit [facility] [address] [place] [address] Ron Washburn MD [address] [place] [address] documented as of this encounter Visit Diagnoses Not on filedocumented in this encounter Care Teams Bobbin Stripper Relationship Specialty Start Date End Date Emily Kohli MD [address] [place], [place] [id number] PCP - Gab RODRÍGUEZ 04/28/21 04/27/22 Alexia Stark NP [address] [place] [address] PCP - Gab RODRÍGUEZ 04/28/22 09/25/22 Emily Kohli MD [address] [place], [place] [id number] PCP - Gab RODRÍGUEZ 09/26/22 Emily Kohli MD [address] [place] [address] PCP - General Family Medicine 10/14/22 documented as of this encounter
--- OUTSIDE RECORDS SUMMARY | 2024-10-28 09:55 | XMS_ITS | Encounter Summary ---
Author Organization [employer] Address [id number] [address] [place] [address] Care Team Providers Care Test Engine Evaluator Name Role Phone Emily Kohli MD Primary Care Provider [phone] Reason for Visit * Reason Comments Med Refill Encounter Details Date Type Department Care Team (Late st Contact Info) Description 04/05/2018 Refill [facility] [address] [facility] [place] [place] [phone] Lianne Scott DO [address] [facility] [place] [phone] Peripheral edema Social History Tobacco Use Types Packs/Day Years [...] as of this encounter Visit Diagnoses Diagnosis Peripheral edema Edema documented in this encounter Additional Health Concerns Assessment Noted Time PHQ-9 Depression Total Score: 0 10/22/19 18 3:00 PM EDT documented as of this encounter Care Teams Test Engine Evaluator Relationship Specialty Start Date End Date Emily Kohli MD PCP - General Family Medicine 11/29/22 documented as of this encounter
--- OUTSIDE RECORDS SUMMARY | 2024-10-28 09:55 | XMS_ITS | Encounter Summary ---
Author Organization [employer] Address [id number] [address] [place] [address] Care Team Providers Care Transit Worker Name Role Phone Emily Kohli MD Primary Care Provider [phone] Reason for Visit * Reason Comments Med Refill Encounter Details Date Type Department Care Team (Late st Contact Info) Description 06/07/2018 Refill [facility] [address] [facility] [place] [address] Lianne Scott DO [address] [facility] [place] [phone] Gastroesophageal reflux disease without esophagitis Social History Tobacco Use Types Packs/Day Years [...] as of this encounter Visit Diagnoses Diagnosis Gastroesophageal reflux disease without esophagitis Esophageal reflux documented in this encounter Additional Health Concerns Assessment Noted Time PHQ-9 Depression Total Score: 0 10/22/19 18 3:00 PM EDT documented as of this encounter Care Teams Transit Worker Relationship Specialty Start Date End Date Emily Kohli MD PCP - General Family Medicine 11/29/22 documented as of this encounter
--- OUTSIDE RECORDS SUMMARY | 2024-10-28 09:55 | XMS_ITS | Clinical Summary ---
Author Organization [employer] Address [id number] [address] [place] [address] Care Team Providers Care Line Supervisor Name Role Phone Emily Kohli MD Primary Care Provider [phone] Allergies Active Allergy Reactions Criticality Noted Date Comments Latex 01/27/2016 Medications aspirin 81 mg chewable tablet Chew 1 tablet (81 mg total) and swallow in the morning. Active hydroCHLOROthiaz domenica (HYDRODIURIL) 25 mg tabletIndication s:hypertension Take 1 tablet (25 mg total) by mouth daily Indications: high blood pressure. Active fluticasone (FLONASE) 50 mcg/actuation nasal spray 01/21/20 17 Active pen needle, diabetic (BD ULTRA-FINE MABLE PEN NEEDLES) 32 gauge x 5/32 needle 1 Pen Needle by miscellaneous route 2 (two) times a day. What ever insurance approves 100 each 6 06/04/19 18 Active glucose 4 g chewable tabletIndication s:Type 2 diabetes mellitus without complication, with long-term current use of insulin ([facility]) Chew 4 tablets (16 g total) and swallow as needed for low blood sugar. 50 tablet 1 10/22/19 18 Active blood sugar diagnostic (glucose blood) stripIndications :Type 2 diabetes mellitus without complication, with long-term current use of insulin ([facility]) Test 3 x day due to erratic blood sugars Free style 270 strip 1 10/22/19 18 Active LANTUS SOLOSTAR U-100 INSULIN 100 unit/mL (3 mL) insulin penIndications:T ype 2 diabetes mellitus without complication, with long-term current use of insulin ([facility]) INJECT 50 UNITS UNDER THE SKIN EVERY NIGHT 6 pen 1 12/31/19 18 Active simvastatin (ZOCOR) 40 mg tablet Take 1 tablet (40 mg total) by mouth nightly. 90 tablet 1 01/29/20 18 Active cholecalciferol, vitamin D3, (VITAMIN D3) 2,000 units capsuleIndicatio ns:Hypovitaminos is D Take 1 capsule (2,000 Units total) by mouth daily. 90 capsule 1 04/20/20 18 Active meclizine (ANTIVERT) 25 mg tablet Take 1 tablet (25 mg total) by mouth 3 (three) times a day as needed for dizziness. 20 tablet 07/28/19 19 Active VICTOZA 3-JOANA 0.6 mg/0.1 mL (18 mg/3 mL) pen injectorIndicati ons:Type 2 diabetes mellitus without complication ([facility]) DIAL AND INJECT SUBCUTANEOUSLY 1.8MG DAILY 9 pen 1 08/18/19 19 Active furosemide (LASIX) 20 mg tabletIndication s:Peripheral edema TAKE ONE TABLET BY MOUTH TWICE A DAY FOR 4 DAYS, THEN TAKE ONE TABLET BY MOUTH DAILY 90 tablet 1 10/13/19 19 Active metFORMIN (GLUCOPHAGE) 1000 mg tablet TAKE ONE TABLET BY MOUTH TWICE A DAY WITH MEALS 180 tablet 1 10/17/19 19 Active lisinopril (PRINIVIL,ZESTRI L) 30 mg tablet TAKE ONE TABLET BY MOUTH DAILY 90 tablet 1 10/29/19 19 Active raNITIdine (ZANTAC) 300 mg tabletIndication s:Gastroesophage al reflux disease without esophagitis TAKE ONE TABLET BY MOUTH ONCE NIGHTLY 90 tablet 1 01/22/20 19 Active Additional Information Patient taking differently: 2 tablet oral Daily with breakfast, Reported on 02/25/2023 carvedilol (COREG) 12.5 mg tabletIndication s:Essential hypertension TAKE TWO TABLETS BY MOUTH TWICE A DAY WITH MEALS 360 tablet 03/22/20 19 Active bumetanide (BUMEX) 1 mg tablet bumetanide 1 mg tablet Active tamsulosin (FLOMAX) 0.4 mg capsule TAKE ONE CAPSULE BY MOUTH ONCE NIGHTLY 30 capsule 8 05/19/19 24 Active oxybutynin XL (DITROPAN-XL) 10 mg 24 hr tablet TAKE 1 TABLET BY MOUTH DAILY 30 tablet 8 05/19/19 24 Active Active Problems Patient Care Coordination No te Formatting of this note is d ifferent from the original. DATE WHEN VACCINE ------- --FLU YRLY IN FALL --TETANUS Q 10 YRS --HZ ONCE AGE 62 --PREVNAR 13 ONCE AGE 67 --PPSSV 23 ONCE AGE 68 CA SCREENING ----- --COLONOSCOPY AGE 50 - 75 --FIT AGE 50 - 75 --PSA AGE 50 - 70 -LOUISA AGE 50 - 70 --PAP AGE 21 - 65 --MAMMOGRAM AGE 45 TO 75 OSTEOPOROSIS ----- --DEXA MENOPAUSAL OPTHO YEALRY DENTAL YEARLY TOBACCO USE YEARLY OBESITY BMI > 30 OVERWT BMI 25 -29 NORMAL BMI 18.5 -24.9 YEARLY YEARLY YEARLY MEDICARE WELLNESS YEARLY (67) DM -diabetic eye exam -diabetic foot exam YEARLY -diabetic shoes none -diabetic classes -ASA/DANNY,ARB,STATIN Pt on all three Problem Noted Date Diagnosed Date Benign prostatic hyperplasia with lower urinary tract symptoms 11/09/2019 Overview (02/25/2023): 11/09/19: Progressive lower urinary tract symptoms. Multifactorial. [...] and oxybutynin. Recheck pvr in a month Assessment & Plan (08/30/2020 12:59 PM EDT): We will see him back in a few months or sooner if he changes his mind Assessment & Plan (12/08/2019 11:34 AM EDT): Will follow up in 3-4 months or sooner if any problems Hematuria, microscopic 11/09/2019 Overview (12/09/2019): 11/09/19: Microhematuria on one specimen at primary care. He was unable to void in clinic today. Plan recheck when returns and workup further if persistent 12/08/19: Unable to void again. I provided him with the order and cup, he will drop off at the lab soon. Denies gross hematuria 12/09/19: UA with 1 RBC Hypovitaminosis D 04/20/2018 Preventative health care 03/05/2018 Assessment & Plan (03/05/2018 1:20 PM EST): DATE WHEN VACCINE ------- --FLU YRLY IN [...] -diabetic shoes -diabetic classes -asa, arb/danny, statin Gastroesophageal reflux disease without esophagi tis 03/05/2018 Overview (03/05/2018): Ranitidine Adequate nutrition 03/05/2018 Overview (03/05/2018): DIET : TEA, LOW CHOLESTEROL, 1800 ADA , WT LOSS Essential hypertension 04/10/2017 Overview (03/05/2018): Lisinopril, HCTZ, Carvedilol, Lasix BMI 50.0-59.9, adult CABAZON (hard of hearing) Overview (04/10/2017): HEARING AID Comprehensive diabetic foot examination, type 2 DM, encounter for Hyperlipidemia Overview (03/05/2018): Simvastatin Osteoarthritis Overview (04/10/2017): S/P KNEE SURGERY Allergic rhinitis Overview (03/05/2018): Flonase PRN Urine test positive for microalbuminuria Overview (03/05/2018): Lisinopril Diabetes mellitus Overview (03/05/2018): Managed by Endocrinology TYPE 2/ Retinopathy ( I Dx uncertain 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 Victoza. Metformin.//aspirin. Statin. Danny. GERD (gastroesophageal reflux disease) Overview (03/05/2018): Rantidine Resolved Problems Problem Noted Date Diagnosed Date Resolved Date Type 2 diabetes mellitus with hypoglycemia 11/02/2017 03/05/2018 Overview (03/05/2018): Victorza, Lantus, Metformin . // on ASA STATIN, DANNY Immunizations Immunization Administration Dates Next Due COVID-19, mRNA, LNP-S, PF, 30mcg/0.3mL Dose 06/26,06/17/2020 Influenza, Injectable, quadrivalent (PF) 018,04/10/2017 Pneumococcal Conjugate 13-Valent 03/05/2018 Family History Medical History Relation Name Comments Diabetes Father Heart disease Father Alzheimer's disease Mother Relation Name Status Comments Father Mother Social History Tobacco Use Types Packs/Day Years Used Date Smoking Tobacco: Never Smokeless Tobacco: Never Tobacco Cessation:Counseling Given: Not Answered Alcohol Use Standard Drinks/Week Comments No 0 [...] file Not on file Not on file Last Filed Vital Signs Vital Sign Reading Time Taken Comments Blood Pressure 155/68 07/18/2023 2:30 PM EDT Pulse 78 07/18/2023 2:30 PM EDT Temperature 36.7 C (98.1 F) 11/29/2022 9:25 PM EDT Respiratory Rate 22 11/29/2022 11:15 PM EDT Oxygen Saturation 97% 11/29/2022 11:15 PM EDT Inhaled Oxygen Concentration - - Weight 149.7 kg (330 lb) 07/18/2023 2:30 PM EDT Height 175.3 cm (5' 9 ) 07/18/2023 2:30 PM EDT Body Mass Index 48.73 07/18/2023 2:30 PM EDT Plan of Treatment Health Maintenance Due Date Last Done Comments DTaP,Tdap and Td Vaccines (1 - Tdap) 10/22/1971 Zoster (Shingles) Vaccine (1 of 2) 2002 Fall Risk Screening 2017 Diabetic Ophthalmology Exam 10/25/2017 10/25/2016, 0 10/14/2016 Diabetic Foot Exam 09/03/2018 09/03/2017 COVID-19 Vaccine (2023-2 5 season) 2023 02/07/2023, 02/14/2022, 02/09/2021, Additional history exists Adult BMI Screening 07/17/2024 07/18/2023 Depression Screening 07/17/2024 07/18/2023 Tobacco Screening 07/17/2024 07/18/2023 Colonoscopy 08/29/2024 08/29/2014 Influenza Vaccine 12/27/2024 02/07/2023, , 02/09/2021, Additional history exists Medical Devices Not on file Procedures Procedure Name Priority Date/Time Associated Diagnosis Comments DIABETES EYE EXAM Routine 10/25/2016 from Last 3 Months or Most Recently Relevant to Health Maintenance Results * DIABETES EYE EXAM (10/25/2016) 10/25/2016 us Scanning Provider External HEALTH MAINTENANCE Fi nal Result from Last 3 Months or Most Recently Relevant to Health Maintenance Insurance [address] [place] [address] [employer] Care Teams Line Supervisor Relationship Specialty Start Date End Date Emily Kohli MD PCP - General Family Medicine 11/29/22
--- OUTSIDE RECORDS SUMMARY | 2024-10-28 09:55 | XMS_ITS | Encounter Summary ---
Author Organization [employer] Address [id number] [address] [place] [address] Care Team Providers Care Icing Maker Name Role Phone Emily Kohli MD Primary Care Provider [phone] Reason for Visit * Reason Comments Med Refill Encounter Details Date Type Department Care Team (Late st Contact Info) Description 10/11/2018 Refill [facility] [address] [facility] [place] [address] Lianne Scott DO [address] [facility] [place] [phone] Peripheral edema Social History Tobacco Use Types [...] documented as of this encounter Care Teams Icing Maker Relationship Specialty Start Date End Date Emily Kohli MD PCP - General Family Medicine 11/29/22 documented as of this encounter
--- OUTSIDE RECORDS SUMMARY | 2024-10-28 09:55 | XMS_ITS | Encounter Summary ---
Author Organization [employer] tem Address [facility]-[id number] [address] [place] [address] Care Team Providers Care Scale Attendant Name Role Phone Emily Kohli MD Primary Care Provider [phone] Reason for Visit * Reason Comments Med Refill Encounter Details Date Type Department Care Team (Late st Contact Info) Description 04/29/2018 Refill [facility] [address] [facility] [place] [address] Lianne Scott DO [address] [facility] [place] [place] [address] Social History Tobacco Use Types Packs/Day Years [...] documented as of this encounter Care Teams Scale Attendant Relationship Specialty Start Date End Date Emily Kohli MD PCP - General Family Medicine 11/29/22 documented as of this encounter
--- OUTSIDE RECORDS SUMMARY | 2024-10-28 09:55 | XMS_ITS | Encounter Summary ---
Author Organization [employer] tem Address [facility] [id number] [address] [place] [address] Care Team Providers Care Lever Miller Name Role Phone Emily Kohli MD Primary Care Provider [phone] Reason for Visit * Reason Comments Med Refill Encounter Details Date Type Department Care Team (Late st Contact Info) Description 03/23/2018 Refill [facility] [address] [facility] [address] Lianne Scott DO [address] [facility] [place] [address] [place] [address] Essential hypertension Social History Tobacco Use Types Packs/Day Years [...] as of this encounter Visit Diagnoses Diagnosis Essential hypertension Unspecified essential hypertension documented in this encounter Additional Health Concerns Assessment Noted Time PHQ-9 Depression Total Score: 0 10/22/19 18 3:00 PM EDT documented as of this encounter Care Teams Lever Miller Relationship Specialty Start Date End Date Emily Kohli MD PCP - General Family Medicine 11/29/22 documented as of this encounter
--- OUTSIDE RECORDS SUMMARY | 2024-10-28 09:55 | XMS_ITS | Encounter Summary ---
Author Organization [employer] tem Address [facility]-[id number] [address] [place] [address] Care Team Providers Care Railroad Crossing Protection Maintainer Name Role Phone Emily Kohli MD Primary Care Provider [phone] Reason for Visit * Reason Comments Med Refill Encounter Details Date Type Department Care Team (Late st Contact Info) Description 05/10/2018 Refill [facility] [address] [facility] [place] [address] Lianne Scott DO [address] [facility] [place] [address] Type 2 diabetes mellitus without complication (CMS-HCC) [...] documented as of this encounter Care Teams Railroad Crossing Protection Maintainer Relationship Specialty Start Date End Date Emily Kohli MD PCP - General Family Medicine 11/29/22 documented as of this encounter
--- OUTSIDE RECORDS SUMMARY | 2024-10-28 09:55 | XMS_ITS | Encounter Summary ---
Author Organization [employer] tem Address [facility]-[id number] [address] [place] [address] Care Team Providers Care Resort Host Name Role Phone Emily Kohli MD Primary Care Provider [phone] Reason for Visit * Reason Comments Med Refill Encounter Details Date Type Department Care Team (Late st Contact Info) Description 10/14/2018 Refill [facility] [address] [facility] [place] [address] Lianne Scott DO [address] [facility] [place] [place] [address] Social History Tobacco Use Types Packs/Day Years [...] documented as of this encounter Care Teams Resort Host Relationship Specialty Start Date End Date Emily Kohli MD PCP - General Family Medicine 11/29/22 documented as of this encounter
--- OUTSIDE RECORDS SUMMARY | 2024-10-28 09:56 | XMS_ITS | Encounter Summary ---
Author Organization [facility] Address [address] [place] [address] Care Team Providers Care Machine Riveter Name Role Phone Emily Kohli MD Unavailable Alexia Stark TELETYPE TECHNICIAN Unavailable [phone] Emily Kohli MD Unavailable Emily Kohli MD Primary Care Provider [phone] Encounter Details Date Type Department Care Team (Late st Contact Info) Description 10/03/2021 Abstract [facility] [address] [place] [address] Miriam Ardon, [facility] [address] [place] [address] Social History Tobacco Use Types Packs/Day Years [...] Procedure Visit [facility] [address] [place] [phone] Rex Angel DPM [address] [place], [place] [address] 11/17/2024 10:30 AM EDT Office Visit [facility] [address] [place] [address] 12/21/2024 11:10 AM EDT Office Visit [facility] [address] [place] [address] Ron [place] MD [address] [place] [address] documented as of this encounter Visit Diagnoses Not on filedocumented in this encounter Care Teams Machine Riveter Relationship Specialty Start Date End Date Emily Kohli MD [address] [place], [place] [id number] PCP - Gab RODRÍGUEZ 04/28/21 04/27/22 Alexia Stark NP [address] [place] [address] PCP - Gab RODRÍGUEZ 04/28/22 09/25/22 Emily Kohli MD [address] [place], [place] [id number] PCP - Gab RODRÍGUEZ 09/26/22 Emily Kohli MD [address] [place] [address] PCP - General Family Medicine 10/14/22 documented as of this encounter
--- OUTSIDE RECORDS SUMMARY | 2024-10-28 09:56 | XMS_ITS | Encounter Summary ---
Author Organization [facility] Address [address] [place] [address] Care Team Providers Care Oncology Social Worker Name Role Phone Emily Kohli MD Unavailable Emily Kohli MD Primary Care Provider [phone] Encounter Details Date Type Department Care Team (Late Contact Info) Description 11/05/2022 Abstract [facility] [address] [place] [address] Rex Angel DPM [address] [place], [place] [phone] Social History Tobacco Use Types Packs/Day Years Used Date Smoking Tobacco: Never Smokeless Tobacco: Never Tobacco Cessation:Counseling Given: Not Answered Alcohol Use Standard Drinks/Week Comments Never 0 (1 standard drink = 0.6 oz pure alcohol) Caffeine intake: none Ice Tea, pop occasionally PHQ-2 Answer Date Recorded Patient Health Questionnaire-2 Score 0 10/14/2022 Sex and Gender Information Value Date Recorded Sex Assigned at Not on file Legal Sex Male 7:25 PM EDT Gender Identity Not on file Sexual Orientation Not on file documented as of this encounter Plan of Treatment Upcoming Encounters Date Type Department Care Team (Late Contact Info) Description 11/11/2024 10:30 AM EDT Procedure Visit [facility] [address] [place] [address] Rex Angel DPM [address] [place], [place] [address] 11/17/2024 10:30 AM EDT Office Visit [facility] [address] [place] [address] 12/21/2024 11:10 AM EDT Office Visit [facility] [address] [place] [address] Ron [place] MD [address] [place] [address] documented as of this encounter Visit Diagnoses Not on filedocumented in this encounter Additional Health Concerns Assessment Noted Time PHQ-9 Depression Total Score: 0 10/15/19 3:00 PM EDT documented as of this encounter Care Teams Oncology Social Worker Relationship Specialty Start Date End Date Emily Kohli MD [address] [place], [place] [id number] PCP - Gab RODRÍGUEZ 09/26/22 Emily Kohli MD [address] [place], [place] [address] PCP - General Family Medicine 10/14/22 documented as of this encounter
--- OUTSIDE RECORDS SUMMARY | 2024-10-28 09:56 | XMS_ITS | Encounter Summary ---
Author Organization [facility] Address [address] [place] [address] Care Team Providers Care Advertising Internship Name Role Phone Emily Kohli MD Unavailable Emily Kohli MD Unavailable Alexia Stark DEVELOPMENT TRAINER Unavailable [phone] Emily Kohli MD Unavailable Emily Kohli MD Primary Care Provider [phone] Encounter Details Date Type Department Care Team (Late st Contact Info) Description 04/18/2021 Abstract [facility] [address] [place] [address] Miriam Ardon, [facility] [address] [facility] [place] [address] Social History Tobacco Use Types Packs/Day Years [...] AM EDT Procedure Visit [facility] [address] [place] [address] Rex Angel DPM [address] [place], [place] [address] 11/17/2024 10:30 AM EDT Office Visit [facility] [address] [place] [address] 12/21/2024 11:10 AM EDT Office Visit [facility] [address] [place] [phone] Ron [place] MD [address] [place] [address] documented as of this encounter Visit Diagnoses Not on filedocumented in this encounter Care Teams Advertising Internship Relationship Specialty Start Date End Date Emily Kohli MD [address] [place] [address] PCP - Gab RODRÍGUEZ 04/28/21 04/27/22 Emily Kohli MD [address] [place] [address] PCP - Gab Commercial 04/28/2004/27 Alexia Stark NP [address] [place] [address] PCP - Gab RODRÍGUEZ 04/28/22 09/25/22 Emily Kohli MD [address] [place] [address] PCP - Gab RODRÍGUEZ 09/26/22 Emily Kohli MD [address] [place] [address] PCP - General Family Medicine 10/14/22 documented as of this encounter
--- OUTSIDE RECORDS SUMMARY | 2024-10-28 09:56 | XMS_ITS | Clinical Summary ---
Author Organization [facility] Address [address] [place] [address] Care Team Providers Care Spray Gun Repairer Helper Name Role Phone Emily Kohli MD Primary Care Provider [phone] Social History Tobacco Use Types Packs/Day Years Used Date Smoking Tobacco: Never Tobacco Cessation:Counseling Given: Not Answered Alcohol Use Standard Drinks/Week Comments Not Currently 0 (1 standard drink = 0.6 oz pur e alcohol) Sex and Gender Information Value Date Recorded Sex Assigned at Not on file Legal Sex Male 3:01 PM EDT Gender Identity Not on file Sexual Orientation Not on file Last Filed Vital Signs Vital Sign Reading Time Taken Comments Blood Pressure - - Pulse - - Temperature - - Respiratory Rate - - Oxygen Saturation - - Inhaled Oxygen Concentration - - Weight 151.5 kg (334 lb) 02/26/2022 8:39 PM EDT Height 175.3 cm (5' 9 ) 02/26/2022 8:39 PM EDT Body Mass Index 49.32 02/26/2022 8:39 PM EDT Plan of Treatment Health Maintenance Due Date Last Done Comments Depression Screen 1964 Hepatitis C screen 1970 DTaP/Tdap/Td vaccine (1 - Tdap) 10/22/1971 Lipids 1992 Colonoscopy 1997 Colorectal Cancer Screen 1997 FIT/FOBT: Average risk 1997 Fecal-DNA (Cologuard): Average risk 1997 Sigmoidoscopy/CT colonography 1997 Shingles vaccine (1 of 2) 2002 Respiratory Syncytial Virus (RSV) or age 60 yrs+ (1 - Risk 60-74 years 1-dose series) 2012 Pneumococcal 50+ years Vaccine (3 of 3 - PCV20 or PCV21) 03/05/2023 03/05/2018, 05/29/2015 COVID-19 Vaccine (5 - 2023- season) 2023 02/14/2022, 02/09/2021, 07/08/2020, Additional history exists Annual Wellness Visit (Medicare Advantage) 04/28/2024 Flu vaccine (#1) 11/26/2024 01/16/2022, , 02/19/2020, Additional history exists Hepatitis A vaccine Aged Out No longe r eligible based on patient's age to complete this topic Hepatitis B vaccine Aged Out No longe r eligible based on patient's age to complete this topic Hib vaccine Aged Out No longer eligi ble based on patient's age to complete this topic Meningococcal (ACWY) vaccine Aged Out No longer eligible based on patient's age to complete this topic Meningococcal B vaccine Aged Out No l onger eligible based on patient's age to complete this topic Polio vaccine Aged Out No longer elig ible based on patient's age to complete this topic Insurance [facility] MEDICARE Care Teams Spray Gun Repairer Helper Relationship Specialty Start Date End Date Emily Kohli MD [address] [place] [address] PCP - General 02/26/22
--- OUTSIDE RECORDS SUMMARY | 2024-10-28 09:56 | XMS_ITS | Encounter Summary ---
Author Organization [facility] Address [address] [place] [address] Care Team Providers Care Sales Contracts Analyst Name Role Phone Emily Kohli MD Unavailable Emily Kohli MD Primary Care Provider [phone] Encounter Details Date Type Department Care Team (Latest Contact Info) Description 08/15/2023 Abstract [facility] Ron [place] MD [address] [facility] [place] [address] Social History Tobacco Use Types Packs/Day Years [...] Sign Reading Time Taken Comments Blood Pressure 120/74 08/15/2023 1:31 PM EDT Pulse 77 08/15/2023 1:31 PM EDT Temperature - - Respiratory Rate 16 08/15/2023 1:31 PM EDT Oxygen Saturation 97% 08/15/2023 1:31 PM EDT Inhaled Oxygen Concentration - - Weight 149 kg (329 lb) 08/15/2023 1:31 PM EDT Height 177.8 cm (5' 10 ) 08/15/2023 1:31 PM EDT Body Mass Index 47.21 08/15/2023 1:31 PM EDT documented in this encounter Plan of Treatment Upcoming Encounters Date Type Department Care Team (Late st Contact Info) Description 11/11/2024 10:30 AM EDT Procedure Visit [facility] [address] [place] [address] Rex Angel, [place] [address] [place] [address] 11/17/2024 10:30 AM EDT Office Visit [facility] [address] [place] [address] 12/21/2024 11:10 AM EDT Office Visit [facility] [address] [place] [address] Ron [place] MD [address], [address] [place] [address] documented as of this encounter Visit Diagnoses Not on filedocumented in this encounter Additional Health Concerns Assessment Noted Time PHQ-9 Depression Total Score: 3 07/15/19 24 11:00 AM EDT documented as of this encounter Care Teams Sales Contracts Analyst Relationship Specialty Start Date End Date Emily Kohli MD [address] [place] [address] PCP - Gab RODRÍGUEZ 09/26/22 Emily Kohli MD [address] [place] [address] PCP - General Family Medicine 10/14/22 documented as of this encounter
--- OUTSIDE RECORDS SUMMARY | 2024-10-28 09:56 | XMS_ITS | Encounter Summary ---
Author Organization [employer] tem Address [facility]-[id number] [address] [place] [address] Care Team Providers Care Storage Battery Inspector And Tester Name Role Phone Emily Kohli MD Primary Care Provider [phone] Reason for Visit * Reason Comments Med Refill Encounter Details Date Type Department Care Team (Late st Contact Info) Description 12/11/2017 Refill [facility] [address] [facility] [place] [address] Lianne Scott DO [address] [facility] [place] [address] Gastroesophageal reflux disease without esophagitis Social History [...] documented as of this encounter Care Teams Storage Battery Inspector And Tester Relationship Specialty Start Date End Date Emily Kohli MD PCP - General Family Medicine 11/29/22 documented as of this encounter
--- OUTSIDE RECORDS SUMMARY | 2024-10-28 09:56 | XMS_ITS | Encounter Summary ---
Author Organization [facility] Address [address] [place] [address] Care Team Providers Care Channel Specialist Name Role Phone Emily Kohli MD Unavailable Emily Kohli MD Unavailable Alexia Stark PHOTOGRAPHIC DEVELOPER AND PRINTER Unavailable [phone] Emily Kohli MD Unavailable Emily Kohli MD Primary Care Provider [phone] Encounter Details Date Type Department Care Team (Late st Contact Info) Description 04/18/2021 Abstract [facility] [address] [place] [address] Miriam Ardon, [facility] [address] [facility] [place] [address] Social History Tobacco Use Types Packs/Day Years [...] Procedure Visit [facility] [address] [place] [address] Rex Angel DPM [address] [place], [place] [address] 11/17/2024 10:30 AM EDT Office Visit [facility] [address] [place] [address] 12/21/2024 11:10 AM EDT Office Visit [facility] [address] [place] [address] Ron [place]burn MD [address] [place] [address] documented as of this encounter Visit Diagnoses Not on filedocumented in this encounter Care Teams Channel Specialist Relationship Specialty Start Date End Date Emily Kohli MD [address] [place] [address] PCP - Gab RODRÍGUEZ 04/28/21 04/27/22 Emily Kohli MD [address] [place] [address] PCP - Gab Commercial 04/28/2004/27 Alexia Stark NP [address] [place] [address] PCP - Gab RODRÍGUEZ 04/28/22 09/25/22 Emily Kohli MD [address] [place] [address] PCP - Gab RODRÍGUEZ 09/26/22 Emily Kohli MD [address] [place] [address] PCP - General Family Medicine 10/14/22 documented as of this encounter
--- OUTSIDE RECORDS SUMMARY | 2024-10-28 09:56 | XMS_ITS | Encounter Summary ---
Author Organization [facility] Address [address] [place] [address] Care Team Providers Care Grants Administrator Name Role Phone Emily Kohli MD Unavailable Emily Kohli MD Primary Care Provider [phone] Encounter Details Date Type Department Care Team (Late st Contact Info) Description 12/17/2022 Abstract [facility] [address] [place] [address] Emily Kohli MD [address] [place], [place] [address] Social History Tobacco Use Types Packs/Day Years [...] AM EDT Procedure Visit [facility] [address] [place] [address] Rex Angel DPM [address] [place], [place] [address] 11/17/2024 10:30 AM EDT Office Visit [facility] [address] [place] [address] 12/21/2024 11:10 AM EDT Office Visit [facility] [address] [place] [address] Ron [place]burn MD [address], [address] [place] [address] documented as of this encounter Visit Diagnoses Not on filedocumented in this encounter Additional Health Concerns Assessment Noted Time PHQ-9 Depression Total Score: 0 10/15/19 3:00 PM EDT documented as of this encounter Care Teams Grants Administrator Relationship Specialty Start Date End Date Emily Kohli MD [address] [place] [address] PCP - Gab RODRÍGUEZ 09/26/22 Emily Kohli MD [address] [place], [place] [address] PCP - General Family Medicine 10/14/22 documented as of this encounter
--- OUTSIDE RECORDS SUMMARY | 2024-10-28 09:56 | XMS_ITS | Encounter Summary ---
Author Organization [facility] Address [address] [place] [address] Care Team Providers Care Regional Administrative Assistant Name Role Phone Emily Kohli MD Primary Care Provider [phone] Reason for Visit * Reason Comments Med Refill Encounter Details Date Type Department Care Team (Late st Contact Info) Description 10/10/2022 Refill [facility] [address] [place] [address] Jeffrey Ingram MD [address] [facility] [address] [facility] [place] [address] Edema, unspecified type Social History Tobacco Use Types Packs/Day Years Used Date Smoking Tobacco: Never Assessed Sex and Gender Information Value Date Recorded Sex Assigned at Not on file Legal Sex Male 10:28 PM EDT Gender Identity Not on file Sexual Orientation Not on file documented as of this encounter Plan of Treatment Not on file documented as of this encounter Visit Diagnoses Diagnosis Edema, unspecified type documented in this encounter Care Teams Regional Administrative Assistant Relationship Specialty Start Date End Date Emily Kohli MD [address] [place], [place] [address] PCP - General Family Medicine 09/23/23 documented as of this encounter
--- OUTSIDE RECORDS SUMMARY | 2024-10-28 09:56 | XMS_ITS | Encounter Summary ---
Author Organization [employer] tem Address [facility][id number] [address] [place] [address] Care Team Providers Care Laser Beam Trim Operator Name Role Phone Emily Kohli MD Primary Care Provider [phone] Reason for Visit * Reason Comments Med Refill Encounter Details Date Type Department Care Team (Late st Contact Info) Description 02/24/2024 Refill [facility] [address] [place] [phone] Elodia Early, FRANCISCO-CALCULATING MACHINE OPERATOR [address] [place] [address] Social History Tobacco Use Types Packs/Day Years [...] Miscellaneous Notes * Telephone Encounter - ANTHONY Rodriguez - 02/24/2024 6:26 AM EDT Needs appt * Telephone Encounter - Azul Osborn - 02/24/2024 6:26 AM EDT Lvm x1 * Telephone Encounter - Azul Osborn - 02/24/2024 6:26 AM EDT Lvm x2 * Telephone Encounter - Azul Osborn - 02/24/2024 6:26 AM EDT LETTER SENT documented in this encounter Plan of Treatment Not on file documented as of this encounter Visit Diagnoses Not on filedocumented in this encounter Additional Health Concerns Assessment Noted Time PHQ-9 Depression Total Score: 0 07/18/19 24 2:33 PM EDT documented as of this encounter Care Teams Laser Beam Trim Operator Relationship Specialty Start Date End Date Emily Kohli MD PCP - General Family Medicine 11/29/22 documented as of this encounter
--- OUTSIDE RECORDS SUMMARY | 2024-10-28 09:56 | XMS_ITS | Encounter Summary ---
Author Organization [facility] Address [address] [place] [address] Care Team Providers Care Otr Van Cdl Truck Driver Name Role Phone Emily Kohli MD Unavailable Emily Kohli MD Primary Care Provider [phone] Encounter Details Date Type Department Care Team (Late st Contact Info) Description 11/11/2022 Abstract [facility] [address] [place] [address] Emily Kohli MD [address] [place], [place] [phone] Social History Tobacco Use Types Packs/Day Years [...] EDT Procedure Visit [facility] [address] [place] [address] Rex Angel DPM [address] [place], [place] [address] 11/17/2024 10:30 AM EDT Office Visit [facility] [address] [place] [address] 12/21/2024 11:10 AM EDT Office Visit [facility] [address] [place] [address] Ron Washburn MD [address] [place] [address] documented as of this encounter Visit Diagnoses Not on filedocumented in this encounter Additional Health Concerns Assessment Noted Time PHQ-9 Depression Total Score: 0 10/15/19 3:00 PM EDT documented as of this encounter Care Teams Otr Van Cdl Truck Driver Relationship Specialty Start Date End Date Emily Kohli MD [address] [place] [address] PCP - Gab RODRÍGUEZ 09/26/22 Emily Kohli MD [address] [place], [place] [address] PCP - General Family Medicine 10/14/22 documented as of this encounter
--- OUTSIDE RECORDS SUMMARY | 2024-10-28 09:56 | XMS_ITS | Encounter Summary ---
Author Organization [employer] tem Address [id number] [address] [place] [address] Care Team Providers Care Supply Chain Engineer Name Role Phone Emily Kohli MD Primary Care Provider [phone] Reason for Visit * Reason Comments Med Refill Encounter Details Date Type Department Care Team (Late st Contact Info) Description 12/29/2017 Refill [facility] [address] [facility] [place] [address] Lianne Scott DO [address] [facility] [place] [address] Type 2 diabetes mellitus without complication, with long-term current use of insulin ([facility]) Social History Tobacco Use Types Packs/Day Years [...] Diagnoses Diagnosis Type 2 diabetes mellitus without complication, with long-term current use of insulin ([facility]) documented in this encounter Additional Health Concerns Assessment Noted Time PHQ-9 Depression Total Score: 0 10/22/19 18 3:00 PM EDT documented as of this encounter Care Teams Supply Chain Engineer Relationship Specialty Start Date End Date Emily Kohli MD PCP - General Family Medicine 11/29/22 documented as of this encounter
--- OUTSIDE RECORDS SUMMARY | 2024-10-28 09:56 | XMS_ITS | Encounter Summary ---
Author Organization [facility] Address [address] [place] [address] Care Team Providers Care Practice Lead Name Role Phone Alexia Stark PICK UP AND DELIVERY DRIVER Unavailable [phone] Emily Kohli MD Unavailable Emily Kohli MD Primary Care Provider [phone] Encounter Details Date Type Department Care Team (Late st Contact Info) Description 06/25/2022 Abstract [facility] [address] [place] [address] Miriam Ardon, [facility] [address] [place] [address] Social History Tobacco Use Types Packs/Day Years [...] 11/11/2024 10:30 AM EDT Procedure Visit [facility] [address] [place] [address] Rex Angel DPM [address] [place], [place] [id number] 11/17/2024 10:30 AM EDT Office Visit [facility] [address] [place] [address] 12/21/2024 11:10 AM EDT Office Visit [facility] [address] [place] [phone] Ron Washburn MD [address] [place] [address] documented as of this encounter Visit Diagnoses Not on filedocumented in this encounter Care Teams Practice Lead Relationship Specialty Start Date End Date Alexia Stark NP [address] [place] [address] PCP - Gab RODRÍGUEZ 04/28/22 09/25/22 Emily Kohli MD [address] [place], [place] [id number] PCP - Gab RODRÍGUEZ 09/26/22 Emily Kohli MD [address] [facility] [place] [address] PCP - General Family Medicine 10/14/22 documented as of this encounter
--- OUTSIDE RECORDS SUMMARY | 2024-10-28 09:56 | XMS_ITS | Encounter Summary ---
Author Organization [facility] Address [address] [place] [address] Care Team Providers Care Computer Programmer Chief Name Role Phone Emily Kohli MD Unavailable Emily Kohli MD Primary Care Provider [phone] Encounter Details Date Type Department Care Team (Late st Contact Info) Description 12/17/2022 Orders Only [facility] [address] [place] [address] Jeffrey Ingram MD [address] [facility] [place] [address] [facility] [place] [address] Social History Tobacco Use Types Packs/Day Years [...] AM EDT Procedure Visit [facility] [address] [place] [phone] Rex Angel, DPMalik [address] [place] [address] 11/17/2024 10:30 AM EDT Office Visit [facility] [address] [place] [address] 12/21/2024 11:10 AM EDT Office Visit [facility] [address] [place] [address] Ron Washburn MD [address] [place] [address] documented as of this encounter Procedures Procedure Name Priority Date/Time Associated Diagnosis Comments ECHO TRANSTHORACIC W/ DOPPLER Routine 12/12/2022 5:23 PM EDT documented in this encounter Results * ECHO TRANSTHORACIC W/ DOPPLER (12/12/2022 5:23 PM EDT) Anatomical Region Laterality Modality Radiographic Yen ging Jeffrey Ingram MD IMG XR PROCEDURES Final Result documented in this encounter Visit Diagnoses Not on filedocumented in this encounter Additional Health Concerns Assessment Noted Time PHQ-9 Depression Total Score: 0 10/15/19 3:00 PM EDT documented as of this encounter Care Teams Computer Programmer Chief Relationship Specialty Start Date End Date Emily Kohli MD [address] [place] [address] PCP - Gab RODRÍGUEZ 09/26/22 Emily Kohli MD [address] [place] [address] PCP - General Family Medicine 10/14/22 documented as of this encounter
--- OUTSIDE RECORDS SUMMARY | 2024-10-28 09:56 | XMS_ITS | Encounter Summary ---
Author Organization [employer] tem Address [facility]-[id number] [address] [place] [address] Care Team Providers Care Crepe Maker Name Role Phone Emily Kohli MD Primary Care Provider [phone] Reason for Visit * Reason Comments Med Refill Encounter Details Date Type Department Care Team (Late st Contact Info) Description 03/28/2023 Refill [facility] [address] [place] [address] [place] [address] [place] [address] Esequiel Garibay MD [address] [place] [address] Social History Tobacco Use Types Packs/Day Years [...] got money to buy more. Never True 02/25/2023 Within the past 12 months th e food we bought just didn't last and we didn't have money to get more. Never True 02/25/2023 Purpose - Life Answer Date Recorded Purpose [...] documented as of this encounter Care Teams Crepe Maker Relationship Specialty Start Date End Date Emily Kohli MD PCP - General Family Medicine 11/29/22 documented as of this encounter
--- OUTSIDE RECORDS SUMMARY | 2024-10-28 09:56 | XMS_ITS | Encounter Summary ---
Author Organization [facility] Address [address] [place] [address] Care Team Providers Care Sustainability Analyst Name Role Phone Emily Kohli MD Unavailable Emily Kohli MD Primary Care Provider [phone] Encounter Details Date Type Department Care Team (Late st Contact Info) Description 10/08/2023 Orders Only [facility] [address] [place] [phone] Emily Kohli MD [address] [place], [place] [phone] Social History Tobacco Use Types Packs/Day Years [...] Procedure Visit [facility] [address] [place] [address] Rex Angel DPM [address] [place], [place] [phone] 11/17/2024 10:30 AM EDT Office Visit [facility] [address] [place] [address] 12/21/2024 11:10 AM EDT Office Visit [facility] [address] [place] [address] Ron Washburn MD [address] [place] [address] documented as of this encounter Procedures Procedure Name Priority Date/Time Associated Diagnosis Comments DIABETIC RETINOPATHY SCREENING - OU - BOTH EYES Routine 04/09/2023 2:53 PM EST documented in this encounter Results * Diabetic Retinopathy Screening - OU - Both Eyes (04/09/2023 2:53 PM EST) Anatomical Region Laterality Modality Head Other Emily Kohli MD OPHTH PHOTOGRAPHY Final Result documented in this encounter Visit Diagnoses Not on filedocumented in this encounter Additional Health Concerns Assessment Noted Time PHQ-9 Depression Total Score: 3 07/15/19 24 11:00 AM EDT documented as of this encounter Care Teams Sustainability Analyst Relationship Specialty Start Date End Date Emily Kohli MD [address] [place] [address] PCP - Gab RODRÍGUEZ 09/26/22 Emily Kohli MD [address] [place] [address] PCP - General Family Medicine 10/14/22 documented as of this encounter
--- OUTSIDE RECORDS SUMMARY | 2024-10-28 09:56 | XMS_ITS | Encounter Summary ---
Author Organization [employer] Address [id number] [address] [place] [address] Care Team Providers Care Driver Education Road Instructor Name Role Phone Emily Kohli MD Primary Care Provider [phone] Reason for Visit * Reason Comments Med Refill Encounter Details Date Type Department Care Team (Late st Contact Info) Description 01/21/2019 Refill [facility] [address] [facility] [place] [address] Lianne Scott DO [address] [facility] [place] [address] Gastroesophageal reflux disease without esophagitis Social History [...] documented as of this encounter Care Teams Driver Education Road Instructor Relationship Specialty Start Date End Date Emily Kohli MD PCP - General Family Medicine 11/29/22 documented as of this encounter
--- OUTSIDE RECORDS SUMMARY | 2024-10-28 09:56 | XMS_ITS | Encounter Summary ---
Author Organization [employer] tem Address [facility] [id number] [address] [place] [address] Care Team Providers Care Optical Goods Worker Name Role Phone Emily Kohli MD Primary Care Provider Reason for Visit * Reason Comments Med Refill Encounter Details Date Type Department Care Team (Late st Contact Info) Description 12/11/2018 Refill [facility] [address] [facility] [place] [address] Lianne Scott DO [address] [facility] [place] [address] [address] Gastroesophageal reflux disease without esophagitis Social History [...] documented as of this encounter Care Teams Optical Goods Worker Relationship Specialty Start Date End Date Emily Kohli MD PCP - General Family Medicine 11/29/22 documented as of this encounter
--- OUTSIDE RECORDS SUMMARY | 2024-10-28 09:56 | XMS_ITS | Encounter Summary ---
Author Organization [facility] Address [address] [place] [address] Care Team Providers Care Soils Engineer Name Role Phone Emily Kohli MD Unavailable Alexia Stark CHOIR SINGER Unavailable [phone] Emily Kohli MD Unavailable Emily Kohli MD Primary Care Provider [phone] Encounter Details Date Type Department Care Team (Late st Contact Info) Description 09/21/2021 Abstract [facility] [address] [place] [address] Miriam Ardon, [facility] [address] [place] [address] Social History Tobacco Use Types Packs/Day Years [...] Procedure Visit [facility] [address] [place] [phone] Rex Angel DPM [address] [place], [place] [address] 11/17/2024 10:30 AM EDT Office Visit [facility] [address] [place] [address] 12/21/2024 11:10 AM EDT Office Visit [facility] [address] [place] [address] Ron Washburn MD [address] [place] [address] documented as of this encounter Visit Diagnoses Not on filedocumented in this encounter Care Teams Soils Engineer Relationship Specialty Start Date End Date Emily Kohli MD [address] [place], [place] [phone] PCP - Gab RODRÍGUEZ 04/28/21 04/27/22 Alexia Stark NP [address] [place] [address] PCP - Gab RODRÍGUEZ 04/28/22 09/25/22 Emily Kohli MD [address] [place], [place] [id number] PCP - Gab RODRÍGUEZ 09/26/22 Emily Kohli MD [address] [place] [address] PCP - General Family Medicine 10/14/22 documented as of this encounter
--- NOTE | 2024-10-28 10:00 | CA_ITS ---
Patient Name: LIS WOMACK MR#: [id number] : 1950 Exam Date: 10/28/2024 Ordering Doctor: DR JEFFREY INGRAM M.D. ECHOCARDIOGRAM REPORT PROCEDURE: CA ECHO DOPPLER COMPLETE INDICATIONS: Dyspnea on exertion, chronic diastolic heart failure, diabetes COMPARISON: None. DESCRIPTION: COMPLETE ECHOCARDIOGRAM Real-time transthoracic echocardiography with 2D, M-mode, spectral and color flow Doppler performed. QUALITY: Technically difficult due to poor acoustics. LEFT VENTRICLE: Normal chamber size. Thickened septal wall. Mild to moderate left ventricular hypertrophy. LV EF: Global left ventricular systolic function is normal; visually estimated ejection fraction is 55 to 60%. No obvious wall motion abnormalities. DIASTOLIC: Normal diastolic function. ATRIAL SEPTUM: Visually appears intact. LEFT ATRIUM: Mild dilatation. RIGHT ATRIUM: Mild dilatation. RIGHT VENTRICLE: Normal chamber size. Normal right ventricular systolic function. TRICUSPID VALVE: Normal mobility and thickness. No stenosis with no regurgitation. MITRAL VALVE: Normal mobility and thickness. No evidence of mitral valve stenosis. There is no mitral annular calcification. No mitral regurgitation. AORTIC VALVE: Normal trileaflet appearance. No visible sclerosis. Normal leaflet mobility. No evidence of aortic valve stenosis. No aortic regurgitation. AORTIC ROOT: Normal diameter and appearance. Ascending aorta is normal in size. PULMONIC VALVE: Normal thickness and mobility. No stenosis. Trivial regurgitation. PERICARDIUM: No evidence of pericardial effusion. IVC: Collapses with inspiration. IVC is normal in size. CONCLUSION: 1. Global left ventricular systolic function is normal; visually estimated ejection fraction is 55 to 60% 2. Mild to moderate left ventricular hypertrophy 3. Normal right ventricular size and systolic function 4. Normal diastolic function 5. Biatrial dilatation 6. No significant valvular abnormalities Adult Echocardiography Procedure Report Left Ventricle LVEDD (3.7 - 5.6 cm): 4.70 cm LVESD (2.2 - 4.0 cm): 3.42 cm LVIVS thickness (0.6 - 1.2 cm): 1.50 cm LVPW thickness (0.5 - 1.0 cm): 1.09 cm e': 0.10 m/s E - e': 7.29 LVOT Max Gradient: 2.90 mm[Hg] LVOT Area (cm2): 0.85 m/s Peak Velocity (LVOT): 0.85 m/s LVOT Diameter 2.42 cm Left Atrium LA Volume Index (2D A2C): 41.44 ml/m2 Left Atrium Systolic Dimension: 4.61 cm Mitral Valve MV E to A Ratio: 0.80 Mitral Valve A-Wave Peak Velocity: 0.87 m/s Mitral Valve E-Wave Peak Velocity: 0.69 m/s Right Ventricle Aorta AO Root Diam: 3.77 cm Ascending Ao Diam: 3.31 cm Aortic Valve AoV Area (Peak Jose): 4.30 cm2, 4.30 cm2 Peak Velocity(Antegrade Flow): 0.91 m/s Peak Gradient(Antegrade Flow): 3.32 mm[Hg] Tricuspid Valve Pulmonic Valve Peak Velocity: 0.98 m/s Peak Gradient: 3.81 mm[Hg] Right Atrium Right Atrium Systolic Pressure: 75.99 ml, 75.99 ml Dictated by: Jeffrey Ingram M.D. on 10/28/2024 at 16:53 Approved by: Jeffrey Ingram M.D. on 10/28/2024 at 17:00
== END 2024-10-28 09:52 | disposition home or self-care (01) ==
LOC: CARD 09:51
PROVIDERS: PCP Family Medicine; Visit Provider Internal Medicine Interventional Cardiology
DX: I25.10 Atherosclerotic heart disease of native coronary artery without angina pectoris (principal); R06.09 Other forms of dyspnea
CPT/HCPCS: 93306